=== PATIENT | female | born 1985 | race African-American/Black ===

== ENCOUNTER 2016-10-24 23:18 | Emergency (ER) | payer MEDICAID ==
[2016-10-24 23:37] VITALS: BP 118/83
[2016-10-24] MEDS ORDERED: HYDROXYZINE PAMOATE 25 MG CAPSULE PO ONE (23:43)
--- NOTE | 2016-10-24 23:45 | ER Document Report ---
ED Medical Screen (RME) - General Chief Complaint: Anxiety Stated Complaint: ANXIETY,HEADACHE Notes: 31-year-old female, chief complaint of anxiety and feeling like she cannot calm down tonight, states earlier she felt short of breath and like her heart was racing, denies any symptoms right now other than feeling very anxious. She states she has stressors at work at home, she denies SI or HI, denies ever attempting. She states she had Xanax at home for this but has not been taking them for some time. She denies any other medications. LMP 1 week ago. TRAVEL OUTSIDE OF THE [place] IN LAST 30 DAYS: No - Related Data Allergies/Adverse Reactions: latex [Latex] Allergy (Verified 07/09/14 14:55) Past Medical History - Social History Chew tobacco use (# tins/day): No Frequency of alcohol use: Occasional Drug Abuse: None Pulmonary Medical History: Reports: Hx Bronchitis, Hx Pneumonia Neurological Medical History: Reports: Hx Migraine Renal/ Medical History: Reports: Hx Ovarian Cysts. Denies: Hx Peritoneal Dialysis Psychiatric Medical History: Reports: Hx Anxiety, Hx Bipolar Disorder, Hx Depression Past Surgical History: Reports: Hx Section - x3 - Immunizations Hx Diphtheria, Pertussis, Tetanus Vaccination: Yes - 2013 Physical Exam - Vital signs Vitals: Temp Pulse Resp BP Pulse Ox 97.9 F 79 18 118/83 100 10/24/16 23:35 10/24/16 23:35 10/24/16 23:35 10/24/16 23:35 10/24/16 23:35 - Respiratory Respiratory status: No respiratory distress Breath sounds: Normal. No: Wheezing - Cardiovascular Rhythm: Regular. No: Tachycardia Heart sounds: Normal auscultation, S1 appreciated, S2 appreciated - Psychological Associated symptoms: Other - patient rocking slightly and talking quickly Course - Vital Signs Vital signs: Temp Pulse Resp BP Pulse Ox 97.9 F 79 18 118/83 100 10/24/16 23:35 10/24/16 23:35 10/24/16 23:35 10/24/16 23:35 10/24/16 23:35 Doctor's Discharge - Discharge Instructions: Anxiety ([facility])
== END 2016-10-25 02:20 | disposition left against medical advice (07) ==
LOC: ER 23:18
DX: F41.9 Anxiety disorder, unspecified (principal); R51 Headache; Z91.040 Latex allergy status; Z53.20 Procedure and treatment not carried out because of patient's decision for unspecified reasons
CPT/HCPCS: 99281; J3490

== ENCOUNTER 2017-07-16 12:16 | Emergency (ER) | payer MEDICAID ==
--- NOTE | 2017-07-16 12:46 | ER Document Report ---
ED Medical Screen (RME) - General Chief Complaint: Vag Bleeding, +preg <12wks Stated Complaint: VAGINAL BLEEDING Time Seen by Provider: 07/16/17 12:45 Notes: Patient states [facility] and her was confirmed. She states she has been having spotting for several days and abdominal cramping which is getting worse. She states she has not had an ultrasound yet with this . TRAVEL OUTSIDE OF THE [place] IN LAST 30 DAYS: Yes COUNTRY TRAVELED TO/FROM: [employer] - Related Data Allergies/Adverse Reactions: latex [Latex] Allergy (Verified 07/16/17 12:19) Past Medical History - Social History Chew tobacco use (# tins/day): No Frequency of alcohol use: None Drug Abuse: None Pulmonary Medical History: Reports: Hx Bronchitis, Hx Pneumonia Neurological Medical History: Reports: Hx Migraine Renal/ Medical History: Reports: Hx Ovarian Cysts. Denies: Hx Peritoneal Dialysis Psychiatric Medical History: Reports: Hx Anxiety, Hx Bipolar Disorder, Hx Depression Past Surgical History: Reports: Hx Section - x3 - Immunizations Hx Diphtheria, Pertussis, Tetanus Vaccination: Yes - 2013 Physical Exam - Vital signs Vitals: Temp Pulse Resp BP Pulse Ox 98.1 F 80 16 114/67 100 07/16/17 12:19 07/16/17 12:19 07/16/17 12:19 07/16/17 12:19 07/16/17 12:19 Course - Vital Signs Vital signs: Temp Pulse Resp BP Pulse Ox 98.1 F 80 16 114/67 100 07/16/17 12:19 07/16/17 12:19 07/16/17 12:19 07/16/17 12:19 07/16/17 12:19
[2017-07-16 13:13] LABS: ABSOLUTE BASOPHILS # (AUTO) 0.1 10^3/uL (0.0-0.2); ABSOLUTE LYMPHOCYTES (AUTO) 2.3 10^3/uL (0.5-4.7); ABSOLUTE MONOCYTES (AUTO) 0.6 10^3/uL (0.1-1.4); ABSOLUTE NEUT (AUTO) 5.4 10^3/uL (1.7-8.2); BASOPHILS % (AUTO) 0.8 % (0-2); EOSINOPHILS % (AUTO) 0.3 % (0-6); HEMATOCRIT 35.6 % (36.0-47.0); HEMOGLOBIN 12.1 g/dL (12.0-15.5); HGB HCT DIFFERENCE 0.7; LYMPHOCYTES % (AUTO) 27.7 % (13-45); MEAN CORPUSCULAR HEMOGLOBIN 30.2 pg (27.0-33.4); MEAN CORPUSCULAR VOLUME 89 fl (80-97); MONOCYTES % (AUTO) 7.2 % (3-13); RED BLOOD COUNT 4.02 10^6/uL (3.72-5.28); RED CELL DISTRIBUTION WIDTH 18.5 % (11.5-14.0); WHITE BLOOD COUNT 8.4 10^3/uL (4.0-10.5)
[2017-07-16 13:17] LABS: APPEARANCE,URINE CLEAR; BILIRUBIN,URINE NEGATIVE (NEGATIVE); GLUCOSE, URINE NEGATIVE (NEGATIVE); KETONES,URINE NEGATIVE (NEGATIVE); LEUKOCYTE ESTERASE,URINE NEGATIVE (NEGATIVE); NITRITE,URINE NEGATIVE (NEGATIVE); PROTEIN,URINE NEGATIVE (NEGATIVE); URINE SPECIFIC GRAVITY 1.012; UROBILINOGEN,URINE NEGATIVE mg/dL (<2.0)
[2017-07-16 13:39] LABS: ALANINE AMINOTRANSFERASE 27 U/L (9-52); ALBUMIN 4.4 g/dL (3.5-5.0); ALKALINE PHOSPHATASE 60 U/L (38-126); ANION GAP 12 (5-19); ASPARTATE AMINO TRANSFERASE 17 U/L (14-36); BILIRUBIN,DIRECT 0.3 mg/dL (0.0-0.4); BILIRUBIN,TOTAL 0.7 mg/dL (0.2-1.3); BLOOD UREA NITROGEN 8 mg/dL (7-20); CALCIUM 9.5 mg/dL (8.4-10.2); CARBON DIOXIDE 25 mmol/L (22-30); CHLORIDE 104 mmol/L (98-107); CREATININE RESULT 0.61 mg/dL (0.52-1.25); GLUCOSE 66 mg/dL (75-110); POTASSIUM 4.3 mmol/L (3.6-5.0); SODIUM 140.7 mmol/L (137-145); TOTAL PROTEIN 7.1 g/dL (6.3-8.2)
--- NOTE | 2017-07-16 14:11 | ER Document Report ---
ED GI/ - General Chief Complaint: Vag Bleeding, +preg <12wks Stated Complaint: VAGINAL BLEEDING Time Seen by Provider: 07/16/17 12:45 Notes: The patient is a 31-year-old female, , 7 weeks by LMP, presents with lower abdominal cramping and a small amount of vaginal bleeding for the past day. She denies dysuria, nausea, vomiting, fevers, diarrhea, constipation or vaginal discharge. TRAVEL OUTSIDE OF THE [place] IN LAST 30 DAYS: Yes COUNTRY TRAVELED TO/FROM: [employer] - Related Data Allergies/Adverse Reactions: latex [Latex] Allergy (Verified 07/16/17 12:19) Past Medical History - General Information source: Patient - Social History Smoking Status: Never Smoker Chew tobacco use (# tins/day): No Frequency of alcohol use: None Drug Abuse: None Family History: Reviewed & Not Pertinent Patient has suicidal ideation: No Patient has homicidal ideation: No Pulmonary Medical History: Reports: Hx Bronchitis, Hx Pneumonia Neurological Medical History: Reports: Hx Migraine Renal/ Medical History: Reports: Hx Ovarian Cysts. Denies: Hx Peritoneal Dialysis Psychiatric Medical History: Reports: Hx Anxiety, Hx Bipolar Disorder, Hx Depression Past Surgical History: Reports: Hx Section - x3 - Immunizations Hx Diphtheria, Pertussis, Tetanus Vaccination: Yes - 2013 Hx Pneumococcal Vaccination: 09/01/12 Review of Systems - Review of Systems Notes: REVIEW OF SYSTEMS: CONSTITUTIONAL: -fevers, -chills EENT: -eye pain, -difficulty swallowing, -nasal congestion CARDIOVASCULAR:-chest pain, -syncope. RESPIRATORY: -cough, -SOB GASTROINTESTINAL: -abdominal pain, -nausea, -vomiting, -diarrhea GENITOURINARY: -dysuria, -hematuria, +vaginal bleeding MUSCULOSKELETAL: -back pain, -neck pain SKIN: -rash or skin lesions. HEMATOLOGIC: -easy bruising or bleeding. LYMPHATIC: -swollen, enlarged glands. NEUROLOGICAL: -altered mental status or loss of consciousness, -headache, - neurologic symptoms PSYCHIATRIC: -anxiety, -depression. ALL OTHER SYSTEMS REVIEWED AND NEGATIVE. Physical Exam - Vital signs Vitals: Temp Pulse Resp BP Pulse Ox 98.1 F 80 16 114/67 100 07/16/17 12:19 07/16/17 12:19 07/16/17 12:19 07/16/17 12:19 07/16/17 12:19 - Notes Notes: PHYSICAL EXAMINATION: GENERAL: Well-appearing, well-nourished and in no acute distress. HEAD: Atraumatic, normocephalic. EYES: Pupils equal round and reactive to light, extraocular movements intact, sclera anicteric, conjunctiva are normal. ENT: nares patent, oropharynx clear without exudates. Moist mucous membranes. NECK: Normal range of motion, supple without lymphadenopathy LUNGS: Breath sounds clear to auscultation bilaterally and equal. No wheezes rales or rhonchi. HEART: Regular rate and rhythm without murmurs ABDOMEN: Soft, nontender, normoactive bowel sounds. No guarding, no rebound. No masses appreciated. EXTREMITIES: Normal range of motion, no pitting or edema. No cyanosis. NEUROLOGICAL: Cranial nerves grossly intact. Normal speech, normal gait. Normal sensory and motor exams. PSYCH: Normal mood, normal affect. SKIN: Warm, Dry, normal turgor, no rashes or lesions noted. Course - Re-evaluation Re-evalutation: Patient has a single living intrauterine with EGA 7 weeks 5 days. Her cervix is closed on ultrasound. Looking through old blood bank records, her blood type is O+ and she does not require RhoGam. Patient has an appointment with the health department. Instructed about pelvic rest and return precautions and she understands. - Vital Signs Vital signs: Temp Pulse Resp BP Pulse Ox 98.1 F 80 16 114/67 100 07/16/17 12:19 07/16/17 12:19 07/16/17 12:19 07/16/17 12:19 07/16/17 12:19 - Laboratory Result Diagrams: 07/16/17 12:50 07/16/17 12:50 Laboratory results interpreted by me: 07/16/17 07/16/17 12:50 12:50 Hct 35.6 L RDW 18.5 H Glucose 66 L Beta HCG, Quant 22623.00 H - Diagnostic Test Radiology reviewed: Image reviewed, Reports reviewed Radiology results interpreted by me: OB: Living IUP. EGA 7 weeks 5 days Discharge - Discharge Clinical Impression: Vaginal bleeding in Condition: Good Disposition: HOME, SELF-CARE Additional Instructions: : You are . care is best started as early in as possible. If you're unsure about continuing this , you should discuss this with your physician or with milk receiver tank [facility] at [facility]. You should take only medications approved by your physician. Acetaminophen can safely be taken for minor pains. As a rule, medication for chronic conditions such as asthma or seizures can safely be continued. You should discuss with the physician every medicine you take. Any regular exercise program can be continued. Talk to your physician, however, before engaging in competitive or demanding sports. Alcohol, smoking, and "street drugs" are dangerous to your baby. Cocaine is especially dangerous. Don't use any illicit drugs! BLEEDING DURING EARLY : You have been evaluated for passing blood while . While we take this symptom very seriously, most women with your degree of bleeding will go on to have a perfectly normal baby. At this time, there is no indication that a miscarriage will occur. (A miscarriage occurs when the fetus is abnormal. There is no medicine or treatment to prevent it.) A more serious cause of bleeding is tubal (or ectopic) . An ultrasound usually can show whether the is in the uterus or in the tube. Sometimes in early , no fetus is seen. In this case, careful follow-up, including repeat blood tests and repeat ultrasound, is necessary. Do not douche or have sex for at least a week, or until OK'd by the doctor. Don't use tampons. Call the doctor or return for re-examination if there is an increase in bleeding or cramping, extreme weakness, fainting, new abdominal pain, fever, or passage of tissue. THREATENED MISCARRIAGE: You have been evaluated for a possible miscarriage. At this time, there is no indication that a miscarriage will occur. Most women with your symptoms will go on to have a perfectly normal baby. However, careful observation will be necessary. A miscarriage occurs when the fetus is abnormal. There is no medicine or treatment for it. You should rest in bed until the symptoms have resolved. Do not douche or have sex for at least a week, or until OK'd by the doctor. Call the doctor or return for re-examination if there is an increase in bleeding or cramping, or passage of tissue. FOLLOW-UP CARE: If you have been referred to a physician for follow-up care, call the physician s office for an appointment as you were instructed or within the next two days. If you experience worsening or a significant change in your symptoms (very heavy bleeding with large clots of blood, passage of tissue, more severe abdominal / pelvic pain or cramping, feeling faint or severe weakness, fever, etc.), notify the physician immediately or return to the Emergency Department at any time for re-evaluation. OBSTETRIC-GYNECOLOGIC (OB-SANITARY [place] MACHINE TENDER) PHYSICIANS IN [place]: [facility] [address], [place] [phone] [facility] [address], [place] [phone] For active duty and dependents diagnosed with a threatened or miscarriage, you should follow up in the following manner: Standard patients who have a local civilian provider should follow up with that provider. Patients of the Family Practice Clinic should call your Team Nurse at 8: 00 am the following morning for further instructions. If you are neither a Standard patient nor a patient of the Family Practice Clinic, you should follow up at the [facility] ([facility]) . Patients already enrolled in the [facility] OB Clinic, Prime patients not assigned to the Family Practice Clinic, and Active Duty patients not assigned to Family Practice Clinic should report to the [facility] Lab at 8:00 am the next morning that the [facility] is open and then you will be seen in the OB Clinic at 11:00 am. Referrals: JYOTHI PASCUAL MD [ACTIVE STAFF] - Follow up as needed
--- NOTE | 2017-07-16 18:28 | RADIOLOGY REPORT (SQ) ---
EXAM DESCRIPTION: U/S OB TRANSVAGINAL W/O DOP COMPLETED DATE/TIME: 07/16/2017 6:14 pm REASON FOR STUDY: PAIN/ VAG BLEEDING COMPARISON: None. TECHNIQUE: Transvaginal static and realtime grayscale images acquired of the pelvis. Additional nancy cted spectral and color Doppler images recorded. All images stored on PACs. bHCG: Not available LIMITATIONS: None. FINDINGS: FETUS: Living intrauterine . EGA: 7 weeks 5 days TATI: 02/27/2018 FHR: 149 beats per minute. SUBCHORIONIC BLEED: Yes SIZE OF BLEED: Small measuring 1.6 cm UTERUS: No masses. No anomalies. CERVICAL LENGTH: 2.6 cm Closed. RIGHT ADNEXA: Normal ovary with normal vascular flow. No adnexal free fluid. No adnexal masses. LEFT ADNEXA: Left ovary was not visualized. No adnexal free fluid. No adnexal masses. FREE FLUID: None. OTHER: No other significant finding. IMPRESSION: LIVING INTRAUTERINE . EGA 7 weeks 5 days Trimester of : First - 0 to 13 weeks. TECHNICAL DOCUMENTATION: JOB ID: [id number] [employer]- All Rights Reserved
[2017-07-16 18:45] VITALS: BP 122/81
== END 2017-07-16 18:45 | disposition home or self-care (01) ==
LOC: ER 12:16
DX: O46.91 Antepartum hemorrhage, unspecified, first trimester (principal); Z3A.01 Less than 8 weeks gestation of pregnancy
CPT/HCPCS: 36415; 76817; 80053; 81001; 84702; 85025; 99284

== ENCOUNTER 2017-11-13 11:25 | Emergency (ER) | payer MEDICAID ==
[2017-11-13 11:35] VITALS: BP 124/59
--- NOTE | 2017-11-13 11:46 | ER Document Report ---
ED General - General Chief Complaint: Cough Stated Complaint: CHEST PAIN, COUGH,RECTAL BLEEDING Time Seen by Provider: 11/13/17 11:35 Mode of Arrival: Ambulatory Information source: Patient Notes: 32 yr old female presents with complaints of right lower chest pain , cough. Pt notes she has been ocughing for 5 days, , dry initially now productive. pt had fever on friday 101.8. 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 IN LAST 30 DAYS: No COUNTRY TRAVELED TO/FROM: [employer] - [facility] Onset: Last week Onset/Duration: Persistent Quality of pain: Sharp Severity: Mild Pain Level: 1 Associated symptoms: Productive cough - green, Fever, Shortness of breath Exacerbated by: Coughing Relieved by: Denies Similar symptoms previously: No Recently seen / treated by doctor: No - Related Data Allergies/Adverse Reactions: latex [Latex] Allergy (Verified 11/13/17 11:33) Past Medical History - Social History Smoking Status: Current Some Day Smoker Cigarette use (# per day): No Chew tobacco use (# tins/day): No Smoking Education Provided: No Frequency of alcohol use: None Drug Abuse: None Family History: Reviewed & Not Pertinent Patient has suicidal ideation: No Patient has homicidal ideation: No Pulmonary Medical History: Reports: Hx Bronchitis, Hx Pneumonia Neurological Medical History: Reports: Hx Migraine Renal/ Medical History: Reports: Hx Ovarian Cysts. Denies: Hx Peritoneal Dialysis Psychiatric Medical History: Reports: Hx Anxiety, Hx Bipolar Disorder, Hx Depression Past Surgical History: Reports: Hx Section - x3 - Immunizations Hx Diphtheria, Pertussis, Tetanus Vaccination: Yes - 2013 Hx Pneumococcal Vaccination: 09/01/12 Review of Systems - Review of Systems Notes: REVIEW OF SYSTEMS: CONSTITUTIONAL : Admits fever EENT: Denies eye, ear, throat, or mouth pain or symptoms. Denies nasal or sinus congestion or discharge. Denies throat, tongue, or mouth swelling or difficulty swallowing. CARDIOVASCULAR: Denies chest pain. Denies palpitations or racing or irregular heart beat. Denies ankle edema. RESPIRATORY: Admits to productive cough GASTROINTESTINAL: Denies abdominal pain or distention. Denies nausea, vomiting , or diarrhea. Denies blood in vomitus, stools, or per rectum. Denies black, tarry stools. Denies constipation. GENITOURINARY: Denies difficulty urinating, painful urination, burning, frequency, blood in urine, or discharge. FEMALE GENITOURINARY: Denies vaginal bleeding, heavy or abnormal periods, irregular periods. Denies vaginal discharge or odor. MUSCULOSKELETAL: Denies back or neck pain or stiffness. Denies joint pain or swelling. SKIN: Denies rash, lesions or sores. HEMATOLOGIC : Denies easy bruising or bleeding. LYMPHATIC: Denies swollen, enlarged glands. NEUROLOGICAL: Denies confusion or altered mental status. Denies passing out or loss of consciousness. Denies dizziness or lightheadedness. Denies headache. Denies weakness or paralysis or loss of use of either side. Denies problems with gait or speech. Denies sensory loss, numbness, or tingling. Denies seizures. PSYCHIATRIC: Denies anxiety or stress. Denies depression, suicidal ideation, or homicidal ideation. ALL OTHER SYSTEMS REVIEWED AND NEGATIVE. PHYSICAL EXAMINATION: GENERAL: Well-appearing, well-nourished and in no acute distress. HEAD: Atraumatic, normocephalic. EYES: Pupils equal round and reactive to light, extraocular movements intact, conjunctiva are normal. ENT: Nares patent, oropharynx clear without exudates. Moist mucous membranes. NECK: Normal range of motion, supple without lymphadenopathy LUNGS: Breath sounds clear to auscultation bilaterally and equal. No wheezes rales or rhonchi. HEART: Regular rate and rhythm without murmurs ABDOMEN: Soft, nontender, nondistended abdomen. No guarding, no rebound. No masses appreciated. Female : deferred Musculoskeletal: Normal range of motion, no pitting or edema. No cyanosis. NEUROLOGICAL: Cranial nerves grossly intact. Normal speech, normal gait. Normal sensory, motor exams PSYCH: Normal mood, normal affect. SKIN: Warm, Dry, normal turgor, no rashes or lesions noted. Dictation was performed using [employer] voice recognition software Physical Exam - Vital signs Vitals: Temp Pulse Resp BP Pulse Ox 98.7 F 65 18 124/59 L 100 11/13/17 11:32 11/13/17 11:32 11/13/17 11:32 11/13/17 11:32 11/13/17 11:32 Course - Re-evaluation Re-evalutation: 11/13/17 11:45 Patient overall looks quite well, vital signs are stable, she did have recent travel therefore d-dimer has been ordered 11/13/17 13:18 D-dimer was negative, patient overall looks well, x-ray noted no significant abnormality, however given the productive cough I will start her on antibiotics for presumed pneumonia After performing a Medical Screening Examination, I estimate there is LOW risk for ACUTE CORONARY SYNDROME, PULMONARY EMBOLI, RESPIRATORY FAILURE, SEPSIS OR MENINGITIS, thus I consider the discharge disposition reasonable. I have reevaluated this patient multiple times and no significant life threatening changes are noted. The patient and I have discussed the diagnosis and risks, and we agree with discharging home with close follow-up. We also discussed returning to the Emergency Department immediately if new or worsening symptoms occur. We have discussed the symptoms which are most concerning (e.g., changing or worsening pain, trouble swallowing or breathing, neck stiffness, fever) that necessitate immediate return. - Vital Signs Vital signs: Temp Pulse Resp BP Pulse Ox 98.7 F 65 18 124/59 L 100 11/13/17 11:32 11/13/17 11:32 11/13/17 11:32 11/13/17 11:32 11/13/17 11:32 - Laboratory Result Diagrams: 11/13/17 12:05 11/13/17 12:05 Laboratory results interpreted by me: 11/13/17 11/13/17 12:05 12:05 Hgb 11.5 L Hct 34.9 L RDW 17.1 H Glucose 72 L - Diagnostic Test Radiology reviewed: Image reviewed - no acute abnormality , report given to patient, Reports reviewed Discharge - Discharge Clinical Impression: URI with cough and congestion Condition: Stable Disposition: HOME, SELF-CARE Instructions: Upper Respiratory Illness ([facility]) Prescriptions: Azithromycin 250 mg PO ASDIR PRN #6 tablet PRN Reason: Referrals: LEE CLAYTON I, DO [Primary Care Provider] - Follow up tomorrow
--- NOTE | 2017-11-13 12:07 | RADIOLOGY REPORT (SQ) ---
EXAM DESCRIPTION: CHEST PA/LAT COMPLETED DATE/TIME: 11/13/2017 11:58 am REASON FOR STUDY: cough fever productive COMPARISON: 10/27/2012. EXAM PARAMETERS: NUMBER OF VIEWS: two views TECHNIQUE: Digital Frontal and Lateral radiographic views of the chest acquired. RADIATION DOSE: NA LIMITATIONS: none FINDINGS: LUNGS AND PLEURA: No opacities, masses or pneumothorax. No pleural effusion. MEDIASTINUM AND HILAR STRUCTURES: No masses or contour abnormalities. HEART AND VASCULAR STRUCTURES: Heart normal size. No evidence for failure. BONES: No acute findings. HARDWARE: None in the chest. OTHER: No other significant finding. IMPRESSION: NO SIGNIFICANT RADIOGRAPHIC FINDING IN THE CHEST. TECHNICAL DOCUMENTATION: JOB ID: [id number] [employer]- All Rights Reserved Reading location - IP/workstation name: [email or web address]
[2017-11-13 12:32] LABS: ABSOLUTE BASOPHILS # (AUTO) 0.1 10^3/uL (0.0-0.2); ABSOLUTE EOSINOPHILS # (AUTO) 0.1 10^3/uL (0.0-0.6); ABSOLUTE LYMPHOCYTES (AUTO) 2.3 10^3/uL (0.5-4.7); ABSOLUTE MONOCYTES (AUTO) 0.6 10^3/uL (0.1-1.4); ABSOLUTE NEUT (AUTO) 3.8 10^3/uL (1.7-8.2); BASOPHILS % (AUTO) 1.2 % (0-2); EOSINOPHILS % (AUTO) 0.8 % (0-6); HEMATOCRIT 34.9 % (36.0-47.0); HEMOGLOBIN 11.5 g/dL (12.0-15.5); LYMPHOCYTES % (AUTO) 33.6 % (13-45); MEAN CORPUSCULAR HEMOGLOBIN 29.5 pg (27.0-33.4); MEAN CORPUSCULAR HGB CONC 33.1 g/dL (32.0-36.0); MEAN CORPUSCULAR VOLUME 89 fl (80-97); MONOCYTES % (AUTO) 8.4 % (3-13); PLATELET COUNT 355 10^3/uL (150-450); RED BLOOD COUNT 3.91 10^6/uL (3.72-5.28); RED CELL DISTRIBUTION WIDTH 17.1 % (11.5-14.0); TOTAL CELLS COUNTED % (AUTO) 100 %; WHITE BLOOD COUNT 6.7 10^3/uL (4.0-10.5)
[2017-11-13 12:53] LABS: ALANINE AMINOTRANSFERASE 40 U/L (9-52); ALBUMIN 4.3 g/dL (3.5-5.0); ALKALINE PHOSPHATASE 76 U/L (38-126); ANION GAP 10 (5-19); ASPARTATE AMINO TRANSFERASE 24 U/L (14-36); BILIRUBIN,DIRECT 0.1 mg/dL (0.0-0.4); BILIRUBIN,TOTAL 0.4 mg/dL (0.2-1.3); BLOOD UREA NITROGEN 7 mg/dL (7-20); CALCIUM 9.5 mg/dL (8.4-10.2); CARBON DIOXIDE 24 mmol/L (22-30); CHLORIDE 107 mmol/L (98-107); GLUCOSE 72 mg/dL (75-110); POTASSIUM 4.3 mmol/L (3.6-5.0); SODIUM 140.8 mmol/L (137-145); TOTAL PROTEIN 6.8 g/dL (6.3-8.2)
== END 2017-11-13 13:28 | disposition home or self-care (01) ==
LOC: ER 11:25
DX: J06.9 Acute upper respiratory infection, unspecified (principal); R05 Cough; R07.9 Chest pain, unspecified; R50.9 Fever, unspecified; R06.02 Shortness of breath; F17.200 Nicotine dependence, unspecified, uncomplicated; Z91.040 Latex allergy status; Z87.01 Personal history of pneumonia (recurrent)
CPT/HCPCS: 36415; 71046; 80053; 85025; 85379; 99284

== ENCOUNTER 2018-04-22 02:54 | Emergency (ER) | payer SELFPAY ==
--- NOTE | 2018-04-22 04:36 | ER Document Report ---
ED General - General Chief Complaint: Vag Bleeding, +preg <12wks Stated Complaint: VAGINAL BLEEDING Time Seen by Provider: 04/22/18 04:34 Mode of Arrival: Ambulatory Information source: Patient Notes: Patient is a 32-year-old female who presents with chief complaint of vaginal bleeding that started yesterday. Patient reports she is approximately 6 weeks . Patient reports this is her fifth , she has 3 living children and she had one missed carriage several months ago. Patient reports the bleeding is mild at this time, reports passage of a few quarter size clots. Patient denies any nausea, vomiting or fever. TRAVEL OUTSIDE OF THE [place] IN LAST 30 DAYS: No COUNTRY TRAVELED TO/FROM: [place] - Related Data Allergies/Adverse Reactions: latex [Latex] Allergy (Verified 04/22/18 06:12) Past Medical History - General Information source: Patient - Social History Smoking Status: Never Smoker Frequency of alcohol use: None Drug Abuse: None Family History: Reviewed & Not Pertinent Pulmonary Medical History: Reports: Hx Bronchitis, Hx Pneumonia Neurological Medical History: Reports: Hx Migraine Renal/ Medical History: Reports: Hx Ovarian Cysts. Denies: Hx Peritoneal Dialysis Psychiatric Medical History: Reports: Hx Anxiety, Hx Bipolar Disorder, Hx Depression Past Surgical History: Reports: Hx Section - x3 - Immunizations Hx Diphtheria, Pertussis, Tetanus Vaccination: Yes - 2013 Hx Pneumococcal Vaccination: 09/01/12 Review of Systems - Review of Systems Constitutional: No symptoms reported EENT: No symptoms reported Cardiovascular: No symptoms reported Respiratory: No symptoms reported Gastrointestinal: See HPI Genitourinary: No symptoms reported Female Genitourinary: See HPI Musculoskeletal: No symptoms reported Skin: No symptoms reported Hematologic/Lymphatic: No symptoms reported Neurological/Psychological: No symptoms reported Physical Exam - Vital signs Vitals: Temp Pulse Resp BP Pulse Ox 98.5 F 69 16 114/67 99 04/22/18 03:05 04/22/18 03:05 04/22/18 03:05 04/22/18 03:05 04/22/18 03:05 - Notes Notes: PHYSICAL EXAMINATION: GENERAL: Well-appearing, well-nourished and in no acute distress. HEAD: Atraumatic, normocephalic. EYES: Pupils equal round and reactive to light, extraocular movements intact, conjunctiva are normal. ENT: Nares patent, oropharynx clear without exudates. Moist mucous membranes. NECK: Normal range of motion, supple without lymphadenopathy LUNGS: Breath sounds clear to auscultation bilaterally and equal. No wheezes rales or rhonchi. HEART: Regular rate and rhythm without murmurs ABDOMEN: Soft, nontender, nondistended abdomen. No guarding, no rebound. No masses appreciated. Female : deferred Musculoskeletal: Normal range of motion, no pitting or edema. No cyanosis. NEUROLOGICAL: Cranial nerves grossly intact. Normal speech, normal gait. Normal sensory, motor exams PSYCH: Normal mood, normal affect. SKIN: Warm, Dry, normal turgor, no rashes or lesions noted. Course - Re-evaluation Re-evalutation: Patient is a presenting with chief complaint of vaginal bleeding. Patient reports she is approximately 6 weeks . According to [facility] records patient is Rh+ so program workup will not be ordered. Patient currently reporting low abdominal cramping. Patient is crying during examination. Will order pain and nausea medicines and proceed with transvaginal ultrasound. CBC and CMP is unremarkable. HCG is positive, quantitative hCG is 3883. Urinalysis is unremarkable for any signs of infection. Transvaginal ultrasound reveals an intrauterine gestational sac with no defined pole, approximate gestational age would be 5 weeks 5 days. Patient is not having active vaginal bleeding while in the department. Patient will be discharged home with plan to return for repeat quantitative hCG in 24-48 hours. Patient verbalizes understanding of plan of care and is agreeable to same. - Vital Signs Vital signs: Temp Pulse Resp BP Pulse Ox 97.9 F 59 L 16 102/60 100 04/22/18 06:53 04/22/18 06:53 04/22/18 06:53 04/22/18 06:53 04/22/18 06:53 - Laboratory Result Diagrams: 04/22/18 05:00 04/22/18 05:00 Laboratory results interpreted by me: 04/22/18 04/22/18 04/22/18 05:00 05:00 05:15 Hgb 11.6 L Hct 34.9 L RDW 18.2 H Beta HCG, Quant 3883.50 H Urine Urobilinogen 4.0 H Discharge - Discharge Clinical Impression: Vaginal bleeding, Threatened Condition: Stable Disposition: HOME, SELF-CARE Additional Instructions: Threatened Miscarriage You have been evaluated for a possible miscarriage. At this time, there is no indication that a miscarriage will occur. Most women with your symptoms will go on to have a perfectly normal baby. However, careful observation will be necessary. A miscarriage occurs when the fetus is abnormal. There is no medicine or treatment for it. You should rest in bed until the symptoms have resolved. Do not douche or have sex for at least a week, or until OK'd by the doctor. Call the doctor or return for re-examination if there is an increase in bleeding or cramping, or passage of tissue. The ultrasound report shows that you are approximately 5 weeks . It will be important for you to return for repeat lab testing in 24-48 hours. I will provide you with an outpatient lab slip for this. Please return to the emergency department if you develop worsening vaginal bleeding, or soaking through more than 1 pad per hour have uncontrollable pain or any other symptom that is concerning to you. Please follow-up with your HEARING AIDE TECHNICIAN in the next 2-3 days for a follow-up. Forms: Follow-Up Laboratory Testing, Return to Work Referrals: LEE CLAYTON I, DO [Primary Care Provider] - Follow up as needed
[2018-04-22 05:10] LABS: ABSOLUTE BASOPHILS # (AUTO) 0.1 10^3/uL (0.0-0.2); ABSOLUTE LYMPHOCYTES (AUTO) 1.6 10^3/uL (0.5-4.7); ABSOLUTE MONOCYTES (AUTO) 0.6 10^3/uL (0.1-1.4); ABSOLUTE NEUT (AUTO) 4.5 10^3/uL (1.7-8.2); BASOPHILS % (AUTO) 0.9 % (0-2); EOSINOPHILS % (AUTO) 0.6 % (0-6); HEMATOCRIT 34.9 % (36.0-47.0); HEMOGLOBIN 11.6 g/dL (12.0-15.5); LYMPHOCYTES % (AUTO) 23.9 % (13-45); MEAN CORPUSCULAR HEMOGLOBIN 29.4 pg (27.0-33.4); MEAN CORPUSCULAR HGB CONC 33.2 g/dL (32.0-36.0); MEAN CORPUSCULAR VOLUME 88 fl (80-97); MONOCYTES % (AUTO) 8.3 % (3-13); PLATELET COUNT 306 10^3/uL (150-450); RED BLOOD COUNT 3.94 10^6/uL (3.72-5.28); RED CELL DISTRIBUTION WIDTH 18.2 % (11.5-14.0); SEGMENTED NEUTROPHILS % (AUTO) 66.3 % (42-78); TOTAL CELLS COUNTED % (AUTO) 100 %; WHITE BLOOD COUNT 6.8 10^3/uL (4.0-10.5)
[2018-04-22] MEDS ORDERED: ONDANSETRON HCL INJ/PF 4 MG/2 ML SDV IV ONE (05:15)
[2018-04-22] MEDS ORDERED: MORPHINE SULFATE 10 MG/ML INJ IV ONE (05:16)
[2018-04-22 05:25] LABS: ALANINE AMINOTRANSFERASE 33 U/L (9-52); ALBUMIN 3.8 g/dL (3.5-5.0); ALKALINE PHOSPHATASE 80 U/L (38-126); ANION GAP 11 (5-19); ASPARTATE AMINO TRANSFERASE 20 U/L (14-36); BILIRUBIN,DIRECT 0.2 mg/dL (0.0-0.4); BILIRUBIN,TOTAL 0.5 mg/dL (0.2-1.3); BLOOD UREA NITROGEN 9 mg/dL (7-20); CALCIUM 8.9 mg/dL (8.4-10.2); CARBON DIOXIDE 23 mmol/L (22-30); CHLORIDE 107 mmol/L (98-107); GLUCOSE 82 mg/dL (75-110); POTASSIUM 4.5 mmol/L (3.6-5.0); SODIUM 141.4 mmol/L (137-145); TOTAL PROTEIN 6.8 g/dL (6.3-8.2)
[2018-04-22 06:00] LABS: APPEARANCE,URINE CLEAR; BILIRUBIN,URINE NEGATIVE (NEGATIVE); COLOR,URINE YELLOW; GLUCOSE, URINE NEGATIVE (NEGATIVE); KETONES,URINE NEGATIVE (NEGATIVE); LEUKOCYTE ESTERASE,URINE NEGATIVE (NEGATIVE); NITRITE,URINE NEGATIVE (NEGATIVE); PROTEIN,URINE NEGATIVE (NEGATIVE); URINE SPECIFIC GRAVITY 1.024
--- NOTE | 2018-04-22 06:26 | RADIOLOGY REPORT (SQ) ---
CLINICAL DATA: 32-year-old female with vaginal bleeding and positive TECHNICAL DATA: Ultrasound imaging of the pelvis was performed endovaginally. COMPARISONS: None FINDINGS: The uterus is grossly normal in size, shape and echogenicity and measures 11.2 cm in length by 7.0 cm in AP dimension. There is a single, normal appearing intrauterine gestational sac which may contain a yolk sac. The average sac diameter measures 0.85 cm corresponding to a five week five day . No definite pole is identified at this time. The right ovary measures 4.5 x 5.0 x 2.6 cm. The right ovary contains a dominant simple appearing follicle measuring 2.6 x 1.8 cm in cross-sectional diameter. No follow-up imaging is recommended. Doppler imaging demonstrates normal pulsed and color Doppler flow. The left ovary measures 2.0 x 3.0 x 2.0 cm. The left ovary is grossly homogeneous in echogenicity. Doppler imaging demonstrates normal Doppler flow. There is a small amount of free fluid in the pelvis. No adnexal mass lesions are identified. IMPRESSION: 1. Intrauterine gestational sac corresponding to a gestational age of approximately five weeks five days. There may be a yolk sac present but there is no evidence of a pole at this time. 2. There is a small amount of free fluid in the pelvis. 3. Grossly normal sonographic evaluation of the ovaries.
[2018-04-22] MEDS ORDERED: HYDROCODONE/ACETAMINOPHEN 5-325 MG (6 TAB/ER DISP) PO PRN (06:36)
[2018-04-22 06:54] VITALS: BP 102/60
== END 2018-04-22 06:54 | disposition home or self-care (01) ==
LOC: ER 02:54
DX: O20.0 Threatened abortion (principal); Z3A.01 Less than 8 weeks gestation of pregnancy; Z91.040 Latex allergy status
CPT/HCPCS: 99284; 96374; 96375; 36415; 84702; 85025; 80053; 81001; 76817; 93976; J2270; J2405

== ENCOUNTER 2018-10-29 20:35 | Emergency (ER) | payer MEDICAID ==
[2018-10-29] MEDS ORDERED: NORMAL SALINE 1000 ML 1,000 ML IV ONE (22:47)
[2018-10-29] MEDS ORDERED: ACETAMINOPHEN 325 MG TABLET PO ONE (22:47)
[2018-10-29 22:51] LABS: ABSOLUTE BASOPHILS # (AUTO) 0.1 10^3/uL (0.0-0.2); ABSOLUTE MONOCYTES (AUTO) 0.6 10^3/uL (0.1-1.4); ABSOLUTE NEUT (AUTO) 5.2 10^3/uL (1.7-8.2); BASOPHILS % (AUTO) 0.9 % (0-2); EOSINOPHILS % (AUTO) 0.2 % (0-6); HEMATOCRIT 35.7 % (36.0-47.0); HEMOGLOBIN 12.2 g/dL (12.0-15.5); LYMPHOCYTES % (AUTO) 25.7 % (13-45); MEAN CORPUSCULAR HEMOGLOBIN 30.3 pg (27.0-33.4); MEAN CORPUSCULAR HGB CONC 34.2 g/dL (32.0-36.0); MEAN CORPUSCULAR VOLUME 89 fl (80-97); MONOCYTES % (AUTO) 7.6 % (3-13); PLATELET COUNT 328 10^3/uL (150-450); RED BLOOD COUNT 4.02 10^6/uL (3.72-5.28); RED CELL DISTRIBUTION WIDTH 16.1 % (11.5-14.0); SEGMENTED NEUTROPHILS % (AUTO) 65.6 % (42-78); TOTAL CELLS COUNTED % (AUTO) 100 %; WHITE BLOOD COUNT 7.9 10^3/uL (4.0-10.5)
[2018-10-29 22:54] LABS: APPEARANCE,URINE SLIGHTLY-CLOUDY; BILIRUBIN,URINE NEGATIVE (NEGATIVE); COLOR,URINE RED; GLUCOSE, URINE NEGATIVE (NEGATIVE); KETONES,URINE NEGATIVE (NEGATIVE); LEUKOCYTE ESTERASE,URINE TRACE (NEGATIVE); NITRITE,URINE NEGATIVE (NEGATIVE); PROTEIN,URINE 100 mg/dL (NEGATIVE); URINE SPECIFIC GRAVITY 1.004; UROBILINOGEN,URINE NEGATIVE mg/dL (<2.0)
[2018-10-29 23:04] LABS: ALANINE AMINOTRANSFERASE 29 U/L (9-52); ALBUMIN 4.8 g/dL (3.5-5.0); ALKALINE PHOSPHATASE 71 U/L (38-126); ANION GAP 10 (5-19); ASPARTATE AMINO TRANSFERASE 28 U/L (14-36); BILIRUBIN,DIRECT 0.2 mg/dL (0.0-0.4); BILIRUBIN,TOTAL 0.9 mg/dL (0.2-1.3); BLOOD UREA NITROGEN 8 mg/dL (7-20); CARBON DIOXIDE 24 mmol/L (22-30); CHLORIDE 107 mmol/L (98-107); GLUCOSE 97 mg/dL (75-110); LIPASE 58.4 U/L (23-300); POTASSIUM 4.2 mmol/L (3.6-5.0); SODIUM 141.2 mmol/L (137-145)
[2018-10-29] MEDS ORDERED: KETOROLAC TROMETHAMINE INJ/PF 30 MG/1 ML SDV IV ONE (23:50)
--- NOTE | 2018-10-30 00:02 | ER Document Report ---
ED General - General Chief Complaint: Vag Bleeding, +preg <12wks Stated Complaint: VAGINAL BLEEDING/CRAMPING Time Seen by Provider: 10/29/18 22:21 Primary Care Provider: LEE CLAYTON DO [Primary Care Provider] - Follow up as needed TRAVEL OUTSIDE OF THE [place] IN LAST 30 DAYS: No COUNTRY TRAVELED TO/FROM: [facility] Patient complains to provider of: Vaginal bleeding cramping positive test at home Notes: Patient states this morning took a home test was positive later that evening started having some vaginal bleeding but states she is gone through 1 pad. Patient states she is a with 2 miscarriages. Patient states this will be her 6 . Patient states having intense abdominal cramping almost like contractions. Patient denies any trauma to the area states slight nausea no vomiting. No diarrhea. Patient denies fevers chills. Patient otherwise resting comfortably upon my evaluation states abdominal surgical history is positive for C-sections. - Related Data Allergies/Adverse Reactions: latex [Latex] Allergy (Verified 10/29/18 20:36) Past Medical History - Social History Smoking Status: Never Smoker Frequency of alcohol use: None Drug Abuse: Marijuana Family History: Reviewed & Not Pertinent Patient has suicidal ideation: No Patient has homicidal ideation: No Pulmonary Medical History: Reports: Hx Bronchitis, Hx Pneumonia Neurological Medical History: Reports: Hx Migraine Renal/ Medical History: Reports: Hx Ovarian Cysts. Denies: Hx Peritoneal Dialysis Psychiatric Medical History: Reports: Hx Anxiety, Hx Bipolar Disorder, Hx Depression Past Surgical History: Reports: Hx Section - x3, Hx Genitourinary Surgery - D&C 07/2018 - Immunizations Hx Diphtheria, Pertussis, Tetanus Vaccination: Yes - 2013 Hx Pneumococcal Vaccination: 09/01/12 Review of Systems - Review of Systems Constitutional: No symptoms reported EENT: No symptoms reported Cardiovascular: No symptoms reported Respiratory: No symptoms reported Gastrointestinal: No symptoms reported Genitourinary: No symptoms reported Female Genitourinary: Vaginal bleeding Musculoskeletal: No symptoms reported Skin: No symptoms reported Hematologic/Lymphatic: No symptoms reported Neurological/Psychological: No symptoms reported -: Yes All other systems reviewed and negative Physical Exam - Vital signs Vitals: Temp Pulse Resp BP Pulse Ox 97.5 F 106 H 20 140/97 H 100 10/29/18 22:10 10/29/18 22:10 10/29/18 22:10 10/29/18 22:10 10/29/18 22:10 Interpretation: Normal - General General appearance: Appears well, Alert - HEENT Head: Normocephalic, Atraumatic Eyes: Normal Pupils: PERRL - Respiratory Respiratory status: No respiratory distress Chest status: Nontender Breath sounds: Normal Chest palpation: Normal - Cardiovascular Rhythm: Regular Heart sounds: Normal auscultation Murmur: No - Abdominal Inspection: Normal Distension: No distension Bowel sounds: Normal Tenderness: Nontender Organomegaly: No organomegaly - Back Back: Normal, Nontender - Extremities General upper extremity: Normal inspection, Nontender, Normal color, Normal ROM, Normal temperature General lower extremity: Normal inspection, Nontender, Normal color, Normal ROM, Normal temperature, Normal weight bearing. No: Rebecca's sign - Neurological Neuro grossly intact: Yes Cognition: Normal Orientation: AAOx4 Jann Coma Scale Eye Opening: Spontaneous Jann Coma Scale Verbal: Oriented Jann Coma Scale Motor: Obeys Commands [place] Coma Scale Total: 15 Speech: Normal Motor strength normal: LUE, RUE, LLE, RLE Sensory: Normal - Psychological Associated symptoms: Normal affect, Normal mood - Skin Skin Temperature: Warm Skin Moisture: Dry Skin Color: Normal Course - Re-evaluation Re-evalutation: 10/30/18 00:58 Patient's beta hCG returned negative. Signs the patient more likely she is having a menstrual cycle as that even with a positive test or this morning still expect slight elevation in her beta hCGs at this time as that has been less than 24 hours. Patient is understanding. Patient was given instructions to use Tylenol Motrin for pain control Bentyl for cramping Zofran for any nausea. Patient was discharged home follow-up with [facility]. - Vital Signs Vital signs: Temp Pulse Resp BP Pulse Ox 98.3 F 106 H 18 109/73 97 10/30/18 00:55 10/29/18 22:10 10/30/18 00:55 10/30/18 00:55 10/30/18 00:55 - Laboratory Result Diagrams: 10/29/18 22:35 10/29/18 22:35 Laboratory results interpreted by me: 10/29/18 10/29/18 22:35 22:35 Hct 35.7 L RDW 16.1 H Urine Protein 100 H Urine Blood LARGE H Ur Leukocyte Esterase TRACE H Discharge - Discharge Clinical Impression: Vaginal bleeding, Abdominal cramping Condition: Good Disposition: HOME, SELF-CARE Instructions: Abdominal Pain ([facility]), Vaginal Bleeding ([facility]) Additional Instructions: Your patency test night was negative do believe the positive test that she had at home was a false positive. More likely the bleeding that you are having right now is due to a menstrual cycle. I would recommend taking Tylenol and Motrin for your abdominal cramping you may also try Bentyl as prescribed return to the ER symptoms worsen follow-up with your primary care physician. Prescriptions: Dicyclomine HCl [Bentyl 20 mg Tablet] 20 mg PO QID #30 tablet Ondansetron [Zofran Odt 4 mg Tablet] 1 - 2 tab PO Q4H PRN #30 tab.rapdis PRN Reason: For Nausea/Vomiting Forms: Return to Work Referrals: LEE CLAYTON I, DO [Primary Care Provider] - Follow up as needed
--- NOTE | 2018-10-30 00:11 | RADIOLOGY REPORT (SQ) ---
EXAM DESCRIPTION: US TRANSVAGINAL COMPLETED DATE/TME: 10/29/2018 23:04 CLINICAL HISTORY: 33 years, Female, +PREG BLEEDINGS COMPARISON:None. TECHNIQUE: Grayscale and Doppler sonogram of the pelvis. Transvaginal technique was used for better evaluation of the pelvic viscera FINDINGS: The uterus measures 9.7 x 7.5 x 6.1 cm. A gestational sac is not visualized. Diffuse prominence of the myometrium. Enlarged periuterine veins. Small amount of echogenic fluid within the endometrial cavity. Right ovary: Measures 3.6 x 2.4 x 2.3 cm. Normal doppler flow. No mass lesion. Left ovary: Measures 2.2 x 1.5 x 1.7 cm. Normal doppler flow. No mass lesion. Free fluid: None. IMPRESSION: No intrauterine is identified. Differential possibilities include early gestation versus missed . Correlation with beta-hCG and follow-up ultrasound as needed.
[2018-10-30] MEDS ORDERED: DICYCLOMINE HCL 20 MG TABLET PO ONE (00:21)
[2018-10-30 00:55] VITALS: BP 109/73
[2018-10-30] MEDS ORDERED: ONDANSETRON 4 MG TAB.RAPDIS PO ONE (00:55)
== END 2018-10-30 01:03 | disposition home or self-care (01) ==
LOC: ER 20:35
DX: N93.8 Other specified abnormal uterine and vaginal bleeding (principal); R10.9 Unspecified abdominal pain; Z32.02 Encounter for pregnancy test, result negative
CPT/HCPCS: 99284; 96374; 86900; 86901; 36415; 86850; 84702; 83690; 85025; 80053; 81001; 76817; 93976; J3490 ×2; S0119; J1885; J7030

== ENCOUNTER 2019-04-11 21:45 | Emergency (ER) | payer MEDICAID ==
[2019-04-11 23:10] LABS: ABSOLUTE EOSINOPHILS # (AUTO) 0.1 10^3/uL (0.0-0.6); ABSOLUTE LYMPHOCYTES (AUTO) 1.7 10^3/uL (0.5-4.7); ABSOLUTE MONOCYTES (AUTO) 0.5 10^3/uL (0.1-1.4); ABSOLUTE NEUT (AUTO) 3.8 10^3/uL (1.7-8.2); BASOPHILS % (AUTO) 0.7 % (0-2); EOSINOPHILS % (AUTO) 0.8 % (0-6); HEMATOCRIT 31.9 % (36.0-47.0); HEMOGLOBIN 10.6 g/dL (12.0-15.5); LYMPHOCYTES % (AUTO) 27.7 % (13-45); MEAN CORPUSCULAR HEMOGLOBIN 28.4 pg (27.0-33.4); MEAN CORPUSCULAR HGB CONC 33.2 g/dL (32.0-36.0); MEAN CORPUSCULAR VOLUME 86 fl (80-97); MONOCYTES % (AUTO) 7.9 % (3-13); PLATELET COUNT 303 10^3/uL (150-450); RED BLOOD COUNT 3.73 10^6/uL (3.72-5.28); RED CELL DISTRIBUTION WIDTH 16.6 % (11.5-14.0); SEGMENTED NEUTROPHILS % (AUTO) 62.9 % (42-78); TOTAL CELLS COUNTED % (AUTO) 100 %
[2019-04-11 23:17] LABS: APPEARANCE,URINE SLIGHTLY-CLOUDY; BILIRUBIN,URINE NEGATIVE (NEGATIVE); COLOR,URINE YELLOW; GLUCOSE, URINE NEGATIVE (NEGATIVE); KETONES,URINE NEGATIVE (NEGATIVE); LEUKOCYTE ESTERASE,URINE NEGATIVE (NEGATIVE); NITRITE,URINE NEGATIVE (NEGATIVE); PROTEIN,URINE NEGATIVE (NEGATIVE); URINE SPECIFIC GRAVITY 1.024
[2019-04-11 23:25] LABS: ALBUMIN 3.8 g/dL (3.5-5.0); ALKALINE PHOSPHATASE 119 U/L (38-126); ANION GAP 7 (5-19); ASPARTATE AMINO TRANSFERASE 20 U/L (14-36); BILIRUBIN,DIRECT 0.1 mg/dL (0.0-0.4); BILIRUBIN,TOTAL 0.2 mg/dL (0.2-1.3); BLOOD UREA NITROGEN 8 mg/dL (7-20); CALCIUM 8.9 mg/dL (8.4-10.2); CARBON DIOXIDE 26 mmol/L (22-30); CHLORIDE 106 mmol/L (98-107); POTASSIUM 4.2 mmol/L (3.6-5.0); TOTAL PROTEIN 6.6 g/dL (6.3-8.2)
[2019-04-11 23:31] LABS: GLUCOSE 67 mg/dL (75-110)
--- NOTE | 2019-04-11 23:47 | ER Document Report ---
ED Medical Screen (RME) - General Chief Complaint: Abdominal Pain Stated Complaint: ABDOMINAL PAIN,VOMITING Time Seen by Provider: 04/11/19 23:39 Primary Care Provider: LEE CLAYTON DO [Primary Care Provider] - Follow up as needed Notes: Patient is a 33-year-old female presents to the emergency department for g eneralized abdominal pain as well as blood in her stool and hematemesis. Patient states this afternoon she started with generalized abdominal pain and noted multiple episodes of bright red blood in her stool. Patient states she also noted scant amount of bright red blood in her vomit and then it was "really dark." Patient complains of generalized abdominal pain and nausea at this time. Patient states she did see a archives specialist in the past but is unsure of exactly why, states she is on no medications. GENERAL: Alert, interacts well. HEART: Regular rate and rhythm. No murmur ABDOMEN: Soft, Non-distended. Bowel sounds present in all 4 quadrants. Generalized tenderness noted all 4 quadrants, somewhat limited as patient is sitting in a chair. I have greeted and performed a rapid initial assessment of this patient. A comprehensive ED assessment and evaluation of the patient, analysis of test results and completion of the medical decision making process will be conducted by additional ED providers. I have specifically instructed the patient or family members with the patient to immediately return to any nursing staff should anything change in the patient's condition or with their chief complaint. This medical record was dictated with voice recognizing software. There may be grammatical, syntax errors that are unintended. TRAVEL OUTSIDE OF THE [place] IN LAST 30 DAYS: No COUNTRY TRAVELED TO/FROM: [employer] [facility] - Related Data Allergies/Adverse Reactions: latex [Latex] Allergy (Verified 10/29/18 20:36) Past Medical History Pulmonary Medical History: Reports: Hx Bronchitis, Hx Pneumonia Neurological Medical History: Reports: Hx Migraine Renal/ Medical History: Reports: Hx Ovarian Cysts. Denies: Hx Peritoneal Dialysis Psychiatric Medical History: Reports: Hx Anxiety, Hx Bipolar Disorder, Hx Depression Past Surgical History: Reports: Hx Section - x3, Hx Genitourinary Surgery - D&C 07/2018 - Immunizations Hx Diphtheria, Pertussis, Tetanus Vaccination: Yes - 2013 Physical Exam - Vital signs Vitals: Temp Pulse Resp BP Pulse Ox 98.0 F 61 20 124/78 100 04/11/19 21:57 04/11/19 21:57 04/11/19 21:57 04/11/19 21:57 04/11/19 21:57 Course - Vital Signs Vital signs: Temp Pulse Resp BP Pulse Ox 98.0 F 61 20 124/78 100 04/11/19 21:57 04/11/19 21:57 04/11/19 21:57 04/11/19 21:57 04/11/19 21:57 - Laboratory Result Diagrams: 04/11/19 22:25 04/11/19 22:25 Laboratory results interpreted by me: 04/11/19 04/11/19 04/11/19 22:25 22:25 22:25 Hgb 10.6 L Hct 31.9 L RDW 16.6 H Glucose 67 L Urine Urobilinogen 2.0 H Doctor's Discharge - Discharge Referrals: LEE CLAYTON DO [Primary Care Provider] - Follow up as needed
--- NOTE | 2019-04-12 00:45 | RADIOLOGY REPORT (SQ) ---
EXAM DESCRIPTION: XR ABDOMEN SUPINE AND ERECT WITH CHEST (ABD ACUTE SERIES) COMPLETED DATE/TME: 04/11/2019 23:44 CLINICAL HISTORY: 33 years Female, Hematemesis Comparison: None. NUMBER OF VIEWS/TECHNIQUE: 3 LIMITATIONS: None. FINDINGS: Intestinal gas pattern is within normal limits. Paucity of bowel gas. No suspicious calcification. Grossly intact skeletal structures. No acute cardiopulmonary findings. L5 posterior fusion variant. IMPRESSION: No acute findings.
[2019-04-12] MEDS ORDERED: ONDANSETRON 4 MG TAB.RAPDIS PO ONE (00:50)
[2019-04-12] MEDS ORDERED: ACETAMINOPHEN 325 MG TABLET PO ONE (01:05)
[2019-04-12] MEDS ORDERED: ACETAMINOPHEN 325 MG TABLET ONE (01:06)
[2019-04-12] MEDS ORDERED: FENTANYL CITRATE INJ/PF 100 MCG/2 ML AMPUL IV ONE (04:33)
--- NOTE | 2019-04-12 05:58 | RADIOLOGY REPORT (SQ) ---
EXAM DESCRIPTION: CT ABDOMEN PELVIS WITH IV CONTRAST COMPLETED DATE/TME: 04/12/2019 04:33 CLINICAL HISTORY: 33 years Female, RLQ pain Comparison: None. Technique: IV contrast. Coronal and sagittal reformat. This exam was performed according to our departmental dose-optimization program, which includes automated exposure control, adjustment of the mA and/or kV according to patient size and/or use of iterative reconstruction technique. [facility]: Dose Right [facility]: CareDose [facility]: Dose Right [facility]: Teradose 4D [facility]: Flexenclosure LIMITATIONS: None Findings: Small free pelvic fluid. Normal appendix. No pneumoperitoneum. No bowel obstruction. No hydronephrosis or hydroureter. No renal/ureteral stone. No gross evidence of gallbladder inflammation, hepatobiliary obstruction, or portal vein defect. No evidence of abdominal aortic aneurysm. Inferior thorax, liver, gallbladder, pancreas, spleen, adrenals, renal system, gastrointestinal tract, pelvic organs, lymphatics, vasculature, and musculoskeleton appear otherwise unremarkable. IMPRESSION: Small free pelvic fluid. Else, unremarkable.
--- NOTE | 2019-04-12 06:09 | ER Document Report ---
ED GI/ - General Chief Complaint: Abdominal Pain Stated Complaint: ABDOMINAL PAIN,VOMITING Time Seen by Provider: 04/11/19 23:39 Primary Care Provider: LEE CLAYTON DO [NO LOCAL MD] - Follow up as needed Notes: Patient is a 33-year-old female presents to the emergency department for generalized abdominal pain as well as blood in her stool and hematemesis. Patient states this afternoon she started with generalized abdominal pain and noted multiple episodes of bright red blood in her stool. Patient states she also noted scant amount of bright red blood in her vomit and then it was "really dark." Patient complains of generalized abdominal pain and nausea at this time. Patient states she did see a clinic administrator in the past but is unsure of exactly why, states she is on no medications. Patient's denying dysuria or vaginal discharge. TRAVEL OUTSIDE OF THE [place] IN LAST 30 DAYS: No COUNTRY TRAVELED TO/FROM: [employer] - Related Data Allergies/Adverse Reactions: latex [Latex] Allergy (Verified 10/29/18 20:36) Past Medical History - General Information source: Patient - Social History Smoking Status: Never Smoker Frequency of alcohol use: None Drug Abuse: None Family History: Reviewed & Not Pertinent Patient has suicidal ideation: No Patient has homicidal ideation: No Pulmonary Medical History: Reports: Hx Bronchitis, Hx Pneumonia Neurological Medical History: Reports: Hx Migraine Renal/ Medical History: Reports: Hx Ovarian Cysts. Denies: Hx Peritoneal Dialysis Psychiatric Medical History: Reports: Hx Anxiety, Hx Bipolar Disorder, Hx Depression Past Surgical History: Reports: Hx Section - x3, Hx Genitourinary Surgery - D&C 07/2018 - Immunizations Hx Diphtheria, Pertussis, Tetanus Vaccination: Yes - 2013 Hx Pneumococcal Vaccination: 09/01/12 Review of Systems - Review of Systems Constitutional: denies: Fever EENT: No symptoms reported Cardiovascular: No symptoms reported Respiratory: No symptoms reported Gastrointestinal: See HPI Genitourinary: See HPI Female Genitourinary: See HPI, Last menstrual period - Unknown Musculoskeletal: No symptoms reported Skin: No symptoms reported Hematologic/Lymphatic: No symptoms reported Neurological/Psychological: No symptoms reported Physical Exam - Vital signs Vitals: Temp Pulse Resp BP Pulse Ox 98.0 F 61 20 124/78 100 04/11/19 21:57 04/11/19 21:57 04/11/19 21:57 04/11/19 21:57 04/11/19 21:57 - Notes Notes: GENERAL: Alert, interacts well. No acute distress. HEAD: Normocephalic, atraumatic. EYES: Pupils equal, round, and reactive to light. Extraocular movements intact. ENT: Oral mucosa moist, tongue midline. NECK: Full range of motion. Supple. Trachea midline. LUNGS: Clear to auscultation bilaterally, no wheezes, rales, or rhonchi. No respiratory distress. HEART: Regular rate and rhythm. No murmur ABDOMEN: Soft, Non-distended. Bowel sounds present in all 4 quadrants. Generalized tenderness noted right lower quadrant, left lower quadrant. EXTREMITIES: Moves all 4 extremities spontaneously. No edema, normal radial and dorsalis pedis pulses bilaterally. No cyanosis. BACK: no cervical, thoracic, lumbar midline tenderness. No saddle anesthesia, n ormal distal neurovascular exam. NEUROLOGICAL: Alert and oriented x3. Normal speech. cranial nerves II through XII grossly intact PSYCH: Normal affect, normal mood. SKIN: Warm, dry, normal turgor. No rashes or lesions noted. 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 No melena noted on exam. Brown stool noted on glove. Course - Re-evaluation Re-evalutation: 04/12/19 06:08 Laboratory 04/11/19 04/11/19 04/11/19 22:25 22:25 22:25 WBC 6.0 RBC 3.73 Hgb 10.6 L Hct 31.9 L MCV 86 MCH 28.4 MCHC 33.2 RDW 16.6 H Plt Count 303 Seg Neutrophils % 62.9 Lymphocytes % 27.7 Monocytes % 7.9 Eosinophils % 0.8 Basophils % 0.7 Absolute Neutrophils 3.8 Absolute Lymphocytes 1.7 Absolute Monocytes 0.5 Absolute Eosinophils 0.1 Absolute Basophils 0.0 Sodium 139.0 Potassium 4.2 Chloride 106 Carbon Dioxide 26 Anion Gap 7 BUN 8 Creatinine 0.71 Est GFR ( Amer) > 60 Est GFR (Non-Af Amer) > 60 Glucose 67 L Calcium 8.9 Total Bilirubin 0.2 Direct Bilirubin 0.1 Neonat Total Bilirubin Not Reportable Neonat Direct Bilirubin Not Reportable Neonat Indirect Bili Not Reportable AST 20 ALT 16 Alkaline Phosphatase 119 Total Protein 6.6 Albumin 3.8 Lipase 91.9 Urine Color YELLOW Urine Appearance SLIGHTLY-CLOUDY Urine pH 6.0 Ur Specific [place] 1.024 Urine Protein NEGATIVE Urine Glucose (UA) NEGATIVE Urine Ketones NEGATIVE Urine Blood NEGATIVE Urine Nitrite NEGATIVE Urine Bilirubin NEGATIVE Urine Urobilinogen 2.0 H Ur Leukocyte Esterase NEGATIVE Urine WBC (Auto) 5 Urine RBC (Auto) 3 Urine Bacteria (Auto) TRACE Squamous Epi Cells Auto 7 Urine Mucus (Auto) FEW Urine Ascorbic Acid NEGATIVE Urine HCG, Qual POC Stool Occult Blood 04/11/19 04/12/19 22:25 04:41 WBC RBC Hgb Hct MCV MCH MCHC RDW Plt Count Seg Neutrophils % Lymphocytes % Monocytes % Eosinophils % Basophils % Absolute Neutrophils Absolute Lymphocytes Absolute Monocytes Absolute Eosinophils Absolute Basophils Sodium Potassium Chloride Carbon Dioxide Anion Gap BUN Creatinine Est GFR ( Amer) Est GFR (Non-Af Amer) Glucose Calcium Total Bilirubin Direct Bilirubin Neonat Total Bilirubin Neonat Direct Bilirubin Neonat Indirect Bili AST ALT Alkaline Phosphatase Total Protein Albumin Lipase Urine Color Urine Appearance Urine pH Ur Specific [place] Urine Protein Urine Glucose (UA) Urine Ketones Urine Blood Urine Nitrite Urine Bilirubin Urine Urobilinogen Ur Leukocyte Esterase Urine WBC (Auto) Urine RBC (Auto) Urine Bacteria (Auto) Squamous Epi Cells Auto Urine Mucus (Auto) Urine Ascorbic Acid Urine HCG, Qual NEGATIVE POC Stool Occult Blood NEGATIVE Acute Abdomen Series 04/11/19 23:44 IMPRESSION: No acute findings. Abdomen/Pelvis CT 04/12/19 04:33 IMPRESSION: Small free pelvic fluid. Else, unremarkable. Patient's labs show no signs of leukocytosis, do show signs of anemia. Patient voices that she knows she is anemic. States she used to take iron pills and s till helps them at home. Patient's guaiac stool testing was negative for occult blood. Patient's CT abdomen pelvis shows small free pelvic fluid otherwise unremarkable. After Zofran and fentanyl in the emergency department patient states she overall feels a lot better. Patient has been able to p.o. fluids with no further episodes of vomiting. I discussed close follow-up with primary care provider with close return precautions. I have also discussed follow-up with gastroenterology. Patient voices understanding. At this time will discharge with return precautions and follow-up recommendati ons. Verbal discharge instructions given a the bedside and opportunity for questions given. Medication warnings reviewed. Patient is in agreement with this plan and has verbalized understanding of return precautions and the need for primary care follow-up in the next 24-72 hours. This medical record was dictated with voice recognizing software. There may be grammatical, syntax errors that are unintended. 04/12/19 06:12 - Vital Signs Vital signs: Temp Pulse Resp BP Pulse Ox 97.7 F 51 L 20 123/78 99 04/12/19 03:34 04/12/19 03:34 04/12/19 03:34 04/12/19 03:34 04/12/19 03:34 - Laboratory Result Diagrams: 04/11/19 22:25 04/11/19 22:25 Laboratory results interpreted by me: 04/11/19 04/11/19 04/11/19 22:25 22:25 22:25 Hgb 10.6 L Hct 31.9 L RDW 16.6 H Glucose 67 L Urine Urobilinogen 2.0 H Discharge - Discharge Clinical Impression: Abdominal pain Qualifiers: Abdominal location: generalized Qualified Code(s): R10.84 - Generalized abdominal pain Vomiting Qualifiers: Vomiting type: hematemesis Nausea presence: with nausea Qualified Code(s): K92.0 - Hematemesis Condition: Stable Disposition: HOME, SELF-CARE Instructions: Vomiting ([facility]), Abdominal Pain ([facility]), Antinausea Medication ([facility]) Additional Instructions: As we discussed you have been seen and treated in the emergency department for generalized abdominal pain and vomiting. Your labs reveal no signs of overwhelming infection. Your labs do reveal signs of anemia. Please make sure he follow-up with your primary care provider for continued testing and treatment. Please make sure you take nausea medication as prescribed. Please a lso make sure should you have any further episodes of bloody poop or bloody vomit you return to the emergency room. Please also return to the emergency room should you have lightheadedness, dizziness, weakness. Please return to the emergency room for any further concerns. I have also provided phone numbers for gastroenterology. Please follow-up with them as well. Prescriptions: Ondansetron [Zofran Odt 4 mg Tablet] 2 tab PO Q6 #15 tab.rapdis Forms: Return to Work Referrals: LEE CLAYTON I, [NO LOCAL MD] - Follow up as needed EBONY BLUNT MD [ACTIVE STAFF] - Follow up as needed
[2019-04-12 06:19] VITALS: BP 140/91
== END 2019-04-12 06:21 | disposition home or self-care (01) ==
LOC: ER 21:45
DX: R10.84 Generalized abdominal pain (principal); K92.0 Hematemesis; K92.1 Melena; Z91.040 Latex allergy status; R18.8 Other ascites
CPT/HCPCS: 36415; 83690; 85025; 81025; 80053; 81001; 74022; 74177; J3490; S0119; J3010; 96374; 99284

== ENCOUNTER 2019-11-09 10:37 | Outpatient (CLI) | payer MEDICAID ==
[2019-11-09] MEDS ORDERED: RINGERS SOLUTION,LACTATED 1,000 ML IV ONE (11:27)
[2019-11-09 11:39] LABS: APPEARANCE,URINE CLEAR; BILIRUBIN,URINE NEGATIVE (NEGATIVE); COLOR,URINE YELLOW; GLUCOSE, URINE NEGATIVE (NEGATIVE); KETONES,URINE NEGATIVE (NEGATIVE); LEUKOCYTE ESTERASE,URINE NEGATIVE (NEGATIVE); NITRITE,URINE NEGATIVE (NEGATIVE); PROTEIN,URINE NEGATIVE (NEGATIVE); URINE SPECIFIC GRAVITY 1.011; UROBILINOGEN,URINE NEGATIVE mg/dL (<2.0)
[2019-11-09 12:00] LABS: URINE AMPHETAMINES SCREEN NEGATIVE; URINE BARBITURATES SCREEN NEGATIVE; URINE BENZODIAZEPINES SCREEN NEGATIVE; URINE COCAINE SCREEN NEGATIVE; URINE METHADONE SCREEN NEGATIVE; URINE PHENCYCLIDINE SCREEN NEGATIVE
[2019-11-09 12:05] LABS: URINE MARIJUANA (THC) SCREEN UNCONFIRMED POSITIVE
[2019-11-09] MEDS ORDERED: TERBUTALINE SULFATE INJ/PF 1 MG/1 ML SDV ONE (12:53)
[2019-11-09] MEDS ORDERED: TERBUTALINE SULFATE INJ/PF 1 MG/1 ML SDV SUBCUT ONE (12:58)
[2019-11-09 13:07] LABS: ABSOLUTE BASOPHILS # (AUTO) 0.1 10^3/uL (0.0-0.2); ABSOLUTE EOSINOPHILS # (AUTO) 0.1 10^3/uL (0.0-0.6); ABSOLUTE LYMPHOCYTES (AUTO) 1.6 10^3/uL (0.5-4.7); ABSOLUTE MONOCYTES (AUTO) 0.6 10^3/uL (0.1-1.4); ABSOLUTE NEUT (AUTO) 5.4 10^3/uL (1.7-8.2); BASOPHILS % (AUTO) 0.6 % (0-2); EOSINOPHILS % (AUTO) 0.9 % (0-6); HEMATOCRIT 31.3 % (36.0-47.0); LYMPHOCYTES % (AUTO) 21.1 % (13-45); MEAN CORPUSCULAR HGB CONC 35.2 g/dL (32.0-36.0); MEAN CORPUSCULAR VOLUME 88 fl (80-97); PLATELET COUNT 252 10^3/uL (150-450); RED BLOOD COUNT 3.56 10^6/uL (3.72-5.28); SEGMENTED NEUTROPHILS % (AUTO) 69.4 % (42-78); TOTAL CELLS COUNTED % (AUTO) 100 %; WHITE BLOOD COUNT 7.8 10^3/uL (4.0-10.5)
[2019-11-09] MEDS ORDERED: NIFEDIPINE 10 MG CAPSULE PO ONE (13:20)
[2019-11-09] MEDS ORDERED: NIFEDIPINE 10 MG CAPSULE ONE (13:23)
[2019-11-09 13:26] LABS: ALBUMIN 3.3 g/dL (3.5-5.0); ALKALINE PHOSPHATASE 65 U/L (38-126); ANION GAP 8 (5-19); ASPARTATE AMINO TRANSFERASE 17 U/L (14-36); BILIRUBIN,DIRECT 0.2 mg/dL (0.0-0.4); BILIRUBIN,TOTAL 0.4 mg/dL (0.2-1.3); BLOOD UREA NITROGEN 3 mg/dL (7-20); CALCIUM 8.6 mg/dL (8.4-10.2); CARBON DIOXIDE 22 mmol/L (22-30); CHLORIDE 107 mmol/L (98-107); GLUCOSE 71 mg/dL (75-110); POTASSIUM 3.9 mmol/L (3.6-5.0); TOTAL PROTEIN 6.4 g/dL (6.3-8.2)
[2019-11-09] MEDS ORDERED: SIMETHICONE 80 MG TAB.CHEW PO ONE (13:40)
[2019-11-09] MEDS ORDERED: SIMETHICONE 80 MG TAB.CHEW ONE (13:56)
--- NOTE | 2019-11-09 14:17 | RADIOLOGY REPORT (SQ) ---
EXAM DESCRIPTION: U/S ABDOMEN LIMITED W/O DOP COMPLETED DATE/TIME: 11/09/2019 1:30 pm REASON FOR STUDY: Right lower quadrant, rule out appendicitis COMPARISON: None. TECHNIQUE: Dynamic and static grayscale images acquired of the abdomen and recorded on PACS. Additio nal selected color Doppler and spectral images recorded. LIMITATIONS: None. FINDINGS: Limited sonographic imaging of the right lower quadrant fails to identify the appendix. T here is what appears to be a 3.4 by 0.8 cm lymph node. The right kidney is normal and measures 12 cm . IMPRESSION: The appendix is not identified. Findings as described. TECHNICAL DOCUMENTATION: JOB ID: [id number] 2010 [employer]- All Rights Reserved Reading location - IP/workstation name: [email or web address]
== END 2019-11-09 14:19 | disposition home or self-care (01) ==
LOC: LC 10:37
PROVIDERS: ATTEND Obstetrics & Gynecology
PROC: 4A1HXCZ Monitoring of Products of Conception, Cardiac Rate, External Approach (ICD-10-PCS; principal; 2019-11-09)
DX: O26.892 Other specified pregnancy related conditions, second trimester (principal); R10.31 Right lower quadrant pain; Z3A.20 20 weeks gestation of pregnancy
CPT/HCPCS: 59899; 94760; 36415; 83690; 85025; 81005; 80053; 80307; 76705; G0480 ×2; J3490; J3105; 80349

== ENCOUNTER 2019-11-14 00:55 | Outpatient (CLI) | payer MEDICAID ==
[2019-11-14 01:32] LABS: APPEARANCE,URINE CLEAR; BILIRUBIN,URINE NEGATIVE (NEGATIVE); COLOR,URINE YELLOW; GLUCOSE, URINE NEGATIVE (NEGATIVE); KETONES,URINE NEGATIVE (NEGATIVE); LEUKOCYTE ESTERASE,URINE NEGATIVE (NEGATIVE); NITRITE,URINE NEGATIVE (NEGATIVE); PROTEIN,URINE NEGATIVE (NEGATIVE); URINE SPECIFIC GRAVITY 1.006; UROBILINOGEN,URINE NEGATIVE mg/dL (<2.0)
[2019-11-14 01:48] LABS: URINE AMPHETAMINES SCREEN NEGATIVE; URINE BARBITURATES SCREEN NEGATIVE; URINE BENZODIAZEPINES SCREEN NEGATIVE; URINE COCAINE SCREEN NEGATIVE; URINE METHADONE SCREEN NEGATIVE; URINE PHENCYCLIDINE SCREEN NEGATIVE
[2019-11-14 01:54] LABS: URINE MARIJUANA (THC) SCREEN UNCONFIRMED POSITIVE
--- NOTE | 2019-11-14 03:17 | RADIOLOGY REPORT (SQ) ---
EXAM DESCRIPTION: US LIMITED COMPLETED DATE/TME: 11/14/2019 00:00 CLINICAL HISTORY: 34 years Female, ctx's Comparison: 10/30/18 TECHNIQUE/LIMITATION: Targeted OB sonogram for requested parameters only. FINDINGS: Single IUP EGA is 21w4d with TATI of 03/28/20 EFW is 378g Cardiac activity: 139-bpm. LUCIA: 13.4-cm DVP: 4.0 x 8.1-cm Placenta: Anterior, low-lying placenta. There is 1.9 cm likely clot in an area of cervical funneling which may indicate partial/recent abruption. Presentation: Transverse. Cervical length: 2.1 cm in length with funneling measuring 1.9 cm in diameter and likely 1.9 x 0.8 x 1.2 cm clot within area of funneling. IMPRESSION: 1. Anterior, low-lying placenta. There is 1.9 cm likely clot in an area of cervical funneling which may indicate partial/recent abruption. 2. Cervical funneling may indicate labor or cervical insufficiency. Cervis is 2.1 cm in length with funneling measuring 1.9 cm in diameter and likely 1.9 x 0.8 x 1.2 cm clot within area of funneling consistent with history of contractions. 3. Recommendation: Immediate OB referral 4. Targeted OB sonogram for requested parameters
[2019-11-14] MEDS ORDERED: NIFEDIPINE 30 MG TAB.ER.24 PO ONE ×2 (04:00→04:01)
== END 2019-11-14 05:13 | disposition home or self-care (01) ==
LOC: LC 00:55
PROVIDERS: ATTEND Obstetrics & Gynecology
PROC: 4A1HXCZ Monitoring of Products of Conception, Cardiac Rate, External Approach (ICD-10-PCS; principal; 2019-11-14)
DX: O26.892 Other specified pregnancy related conditions, second trimester (principal); Z3A.21 21 weeks gestation of pregnancy
CPT/HCPCS: 81025; 81001; 80307; 76815; 59899; G0480 ×2; J3490; 80349

== ENCOUNTER 2020-03-12 01:18 | Outpatient (CLI) | payer MEDICAID ==
[2020-03-12 02:02] LABS: APPEARANCE,URINE CLEAR; BILIRUBIN,URINE NEGATIVE (NEGATIVE); COLOR,URINE STRAW; GLUCOSE, URINE NEGATIVE (NEGATIVE); KETONES,URINE NEGATIVE (NEGATIVE); LEUKOCYTE ESTERASE,URINE NEGATIVE (NEGATIVE); NITRITE,URINE NEGATIVE (NEGATIVE); PROTEIN,URINE NEGATIVE (NEGATIVE); URINE SPECIFIC GRAVITY 1.006; UROBILINOGEN,URINE NEGATIVE mg/dL (<2.0)
[2020-03-12 02:28] LABS: URINE AMPHETAMINES SCREEN NEGATIVE; URINE BARBITURATES SCREEN NEGATIVE; URINE BENZODIAZEPINES SCREEN NEGATIVE; URINE COCAINE SCREEN NEGATIVE; URINE MARIJUANA (THC) SCREEN NEGATIVE; URINE METHADONE SCREEN NEGATIVE; URINE PHENCYCLIDINE SCREEN NEGATIVE
--- NOTE | 2020-03-12 03:27 | Non Stress Test Report ---
Non Stress Test Datetime Report Generated by CPN: 03/12/2020 03:27 DEMOGRAPHIC EGA NST: 38.4 INDICATION Indication for Study (NST) Other: >32 weeks URINE RESULTS Urine Protein, NST: Negative Urine Ketones - NST: Negative Urine Glucose - NST: Negative Urine Blood - NST: Negative MONITORING Monitor Explained: Monitor Explained; Test Explained; Patient Verbalized Understanding Time on Monitor: 03/12/2020 01:36 Time off Monitor: 03/12/2020 02:17 NST Duration: 41 NST INTERVENTIONS NST Interventions: PO Hydration Physician Notified NST: Dr. Hernnadez BABY A: [id number] BABY A Movement : Present Contraction Frequency : Uterine irritability FHR Baseline : 135 Accelerations : 15X15 Decelerations : None Variability : Moderate 6-25bpm NST Review: Does Not Meet Criteria for Reactive NST NST Review and Verified By : ayaka VENEGAS Results: Reactive NST REPORT Report Trigger: Send Report
== END 2020-03-12 04:15 | disposition home or self-care (01) ==
LOC: LC 01:18
PROVIDERS: ATTEND Obstetrics & Gynecology
DX: O47.1 False labor at or after 37 completed weeks of gestation (principal); Z3A.38 38 weeks gestation of pregnancy; Z91.040 Latex allergy status
CPT/HCPCS: 59025; 80307; 81005

== ENCOUNTER 2020-03-15 06:14 | Inpatient (IN) | payer MEDICAID ==
[2020-03-13 12:18] LABS: APPEARANCE,URINE CLEAR; BILIRUBIN,URINE NEGATIVE (NEGATIVE); COLOR,URINE YELLOW; GLUCOSE, URINE NEGATIVE (NEGATIVE); KETONES,URINE NEGATIVE (NEGATIVE); LEUKOCYTE ESTERASE,URINE NEGATIVE (NEGATIVE); NITRITE,URINE NEGATIVE (NEGATIVE); PROTEIN,URINE NEGATIVE (NEGATIVE); URINE SPECIFIC GRAVITY 1.016
[2020-03-13 12:26] LABS: ABSOLUTE BASOPHILS # (AUTO) 0.1 10^3/uL (0.0-0.2); ABSOLUTE LYMPHOCYTES (AUTO) 1.4 10^3/uL (0.5-4.7); ABSOLUTE MONOCYTES (AUTO) 0.9 10^3/uL (0.1-1.4); ABSOLUTE NEUT (AUTO) 5.1 10^3/uL (1.7-8.2); BASOPHILS % (AUTO) 0.9 % (0-2); EOSINOPHILS % (AUTO) 0.5 % (0-6); HEMATOCRIT 30.3 % (36.0-47.0); HEMOGLOBIN 10.3 g/dL (12.0-15.5); LYMPHOCYTES % (AUTO) 18.6 % (13-45); MEAN CORPUSCULAR HEMOGLOBIN 29.3 pg (27.0-33.4); MEAN CORPUSCULAR VOLUME 86 fl (80-97); MONOCYTES % (AUTO) 11.8 % (3-13); PLATELET COUNT 283 10^3/uL (150-450); RED BLOOD COUNT 3.52 10^6/uL (3.72-5.28); RED CELL DISTRIBUTION WIDTH 16.1 % (11.5-14.0); SEGMENTED NEUTROPHILS % (AUTO) 68.2 % (42-78); TOTAL CELLS COUNTED % (AUTO) 100 %; WHITE BLOOD COUNT 7.4 10^3/uL (4.0-10.5)
[2020-03-13 12:44] LABS: URINE AMPHETAMINES SCREEN NEGATIVE; URINE BARBITURATES SCREEN NEGATIVE; URINE BENZODIAZEPINES SCREEN NEGATIVE; URINE COCAINE SCREEN NEGATIVE; URINE MARIJUANA (THC) SCREEN NEGATIVE; URINE METHADONE SCREEN NEGATIVE; URINE PHENCYCLIDINE SCREEN NEGATIVE
[2020-03-15] MEDS ORDERED: PROPOFOL INJ 200 MG/20 ML VIAL IV ONE (06:40)
[2020-03-15] MEDS ORDERED: FENTANYL CITRATE INJ/PF 250 MCG/5 ML AMPULE ONE (06:41)
[2020-03-15] MEDS ORDERED: METHYLERGONOVINE MALEATE INJ/PF 0.2 MG/1 ML AMPULE ONE (06:41)
[2020-03-15] MEDS ORDERED: MISOPROSTOL 0.1 MG TABLET ONE (06:41)
[2020-03-15] MEDS ORDERED: CARBOPROST TROMETHAMINE INJ 250 MCG/1 ML AMPULE ONE (06:41)
[2020-03-15] MEDS ORDERED: MORPHINE SULFATE 10 MG/ML INJ ONE (06:41)
[2020-03-15] MEDS ORDERED: MIDAZOLAM 2 MG/2 ML INJ ONE ×2 (06:41→07:51)
[2020-03-15] MEDS ORDERED: CEFAZOLIN 2 GM/D5W RTU 2 GM/50 ML RTUPB IV ONE (06:43)
[2020-03-15] MEDS ORDERED: OXYTOCIN 10 UNIT/ML VIAL ONE ×3 (06:51→07:27)
[2020-03-15 07:10] LABS: ARTERIAL BLOOD FIO2 CORD BLOOD; ARTERIAL BLOOD PO2 27.5 mmHg (80-100)
[2020-03-15] MEDS ORDERED: MISOPROSTOL 0.2 MG TABLET ONE (07:18)
[2020-03-15] MEDS ORDERED: HYDROMORPHONE HCL INJ/PF 2 MG/ML AMPULE ONE (08:08)
[2020-03-15 08:25] LABS: ABSOLUTE BASOPHILS # (AUTO) 0.1 10^3/uL (0.0-0.2); ABSOLUTE EOSINOPHILS # (AUTO) 0.1 10^3/uL (0.0-0.6); ABSOLUTE LYMPHOCYTES (AUTO) 2.2 10^3/uL (0.5-4.7); ABSOLUTE MONOCYTES (AUTO) 1.1 10^3/uL (0.1-1.4); ABSOLUTE NEUT (AUTO) 14.3 10^3/uL (1.7-8.2); BASOPHILS % (AUTO) 0.3 % (0-2); EOSINOPHILS % (AUTO) 0.3 % (0-6); HEMATOCRIT 26.8 % (36.0-47.0); HEMOGLOBIN 8.9 g/dL (12.0-15.5); LYMPHOCYTES % (AUTO) 12.3 % (13-45); MEAN CORPUSCULAR HEMOGLOBIN 29.4 pg (27.0-33.4); MEAN CORPUSCULAR HGB CONC 33.3 g/dL (32.0-36.0); MEAN CORPUSCULAR VOLUME 88 fl (80-97); MONOCYTES % (AUTO) 6.3 % (3-13); PLATELET COUNT 261 10^3/uL (150-450); RED BLOOD COUNT 3.03 10^6/uL (3.72-5.28); RED CELL DISTRIBUTION WIDTH 15.7 % (11.5-14.0); SEGMENTED NEUTROPHILS % (AUTO) 80.8 % (42-78); TOTAL CELLS COUNTED % (AUTO) 100 %
[2020-03-15 08:26] LABS: WHITE BLOOD COUNT 17.6 10^3/uL (4.0-10.5)
[2020-03-15 08:27] LABS: INTERNATIONAL RATION (INR) 1.13; PROTHROMBIN TIME 14.6 SEC (11.4-15.4)
[2020-03-15 08:28] LABS: FIBRINOGEN 276 mg/dL (209-497); PARTIAL THROMBOPLASTIN TIME 32.2 SEC (23.5-35.8)
[2020-03-15] MEDS ORDERED: NORMAL SALINE 250 ML IV PRN ×2 (08:31)
[2020-03-15] MEDS ORDERED: OXYTOCIN/0.9 % SODIUM CHLORIDE 30 UNIT/500 ML RTUINJ IV PRN (08:32)
[2020-03-15] MEDS ORDERED: MEASLES,MUMPS&RUBELLA VACC/PF 0.5 ML VIAL SUBCUT PRN (08:32)
[2020-03-15] MEDS ORDERED: HYDROMORPHONE HCL INJ/PF 2 MG/ML AMPULE IV PRN (08:32)
[2020-03-15] MEDS ORDERED: ACETAMINOPHEN 1,000 MG/100 ML RTUPB IV PRN (08:32)
[2020-03-15] MEDS ORDERED: PROMETHAZINE HCL INJ 25 MG/1 ML VIAL IV PRN (08:32)
[2020-03-15] MEDS ORDERED: SIMETHICONE 80 MG TAB.CHEW PO PRN (08:32)
[2020-03-15] MEDS ORDERED: RINGERS SOLUTION,LACTATED 1,000 ML IV PRN (08:32)
[2020-03-15] MEDS ORDERED: ACETAMINOPHEN 325 MG TABLET PO PRN (08:32)
[2020-03-15] MEDS ORDERED: OXYCODONE-ACETAMINOPHEN 5-325 MG TABLET PO PRN ×2 (08:32)
[2020-03-15 08:39] LABS: ALBUMIN 2.7 g/dL (3.5-5.0); ALKALINE PHOSPHATASE 117 U/L (38-126); ASPARTATE AMINO TRANSFERASE 22 U/L (14-36); BILIRUBIN,TOTAL 0.4 mg/dL (0.2-1.3); BLOOD UREA NITROGEN 5 mg/dL (7-20); CALCIUM 8.3 mg/dL (8.4-10.2); CARBON DIOXIDE 24 mmol/L (22-30); GLUCOSE 103 mg/dL (75-110); POTASSIUM 3.8 mmol/L (3.6-5.0); TOTAL PROTEIN 5.5 g/dL (6.3-8.2)
[2020-03-15 08:44] LABS: ANION GAP 5 (5-19); CHLORIDE 106 mmol/L (98-107)
--- NOTE | 2020-03-15 08:45 | Brief Operative Note ---
BRIEF OPERATIVE REPORT DATE OF SURGERY: 03/15/20 TIME OF SURGERY: 06:45 PREOPERATIVE DIAGNOSIS: IUP at 38+6ega, h/o section x 3, Abruption, SROM, H/o LEEP, GBS positive, Heart quivering on US, emergency section POSTOPERATIVE DIAGNOSIS: ARABELLA - delivered SURGEON: RAI FERNANDEZ FINDINGS: female infant delivered at 0647, see NICU note for CODE of infant. Normal bilateral tubes/ovaries. Couvalaire uterus, significant abruption with at least 1 liter of Clot. EBL for surgery 800ml (plus abruption), IVF 1400ml, UOP 15ml, QBL 1900ml COMPLICATIONS: abruption ESTIMATED BLOOD LOSS: 800ml TISSUE REMOVED OR ALTERED: placenta and cord sent to pathology TECHNICAL PROCEDURE: Repeat section, Scar revision
--- NOTE | 2020-03-15 08:46 | Operative Report ---
Operative Report DATE OF SURGERY: 03/15/20 PREOPERATIVE DIAGNOSIS: IUP at 38+6ega, h/o section x 3, Abruption, SR OM, H/o LEEP, GBS positive, Heart quivering on US, emergency section POSTOPERATIVE DIAGNOSIS: ARABELLA - delivered OPERATION: Repeat section, Scar revision SURGEON: RAI FERNANDEZ ANESTHESIA: GA TISSUE REMOVED OR ALTERED: placenta abruption COMPLICATIONS: abruption ESTIMATED BLOOD LOSS: 800ml QUANTITATIVE BLOOD LOSS: 1,900 INTRAOPERATIVE FINDINGS: female delivered at 0647, see NICU note for CODE of infant. Normal bilateral tubes/ovaries. Couvalaire uterus, significant abruption with at least 1 liter of Clot. EBL for surgery 800ml (plus abr uption), IVF 1400ml, UOP 15ml, QBL 1900ml, cord gases obtained. NICU team will update patient on status of baby when they have more information. PROCEDURE: Anesthesia provider: [Dr. Caballero, Curt Ramirez REGIONAL MERCHANDISING MANAGER, Jorje Stephens REGIONAL MERCHANDISING MANAGER] Urine output: [15ml] IV fluids: [1400ml] Indications: [34yo at 38+6ega presents via EMS with reported uterine contractions and possible SROM at 0625. Patient noted to have blood on linens from EMS and patient reports that at 0500 she noted leakage of fluid with large amounts of blood. I was called to the room at 0633 for evaluation. At 0634 US performed by myself with minimal heart activity (no M mode since definitenly less than 80s) and heart almost appeared to be quivering. Emergent section was called and reviewed with patient that I was concerned about the baby's survivability with the cardiac activity I was seeing on the US. She agreed to proceed with emergent section. co mplicated GBS positive and history or 3 prior sections and history of LEEP. Risks, benefits, alternatives reviewed and will proceed with section. In OR at 0643 and start incision at 0646.] Procedure: The patient was taken to the operating room where general anesthesia was obtained. She was then prepped and draped in the normal sterile fashion and placed in the dorsal supine position with a leftward tilt. A Pfannenstiel skin incision was then made and carried through to the underlying layers of the fascia with the scalpel. The fascia was incised in the midline and the incision extended laterally with the scalpel. The superior and inferior aspect of the fascial incision was then grasped with Nikhil clamps elevated and the underlying rectus muscles dissected off sharply. The rectus muscles were then in the midline and the peritoneum at the amount identified and entered sharply. The peritoneal incision was then extended superiorly and inferiorly with good visualization of the bladder. The bladder blade was then reinserted and the lower uterine segment incised in a transverse fashion with the scalpel. The uterine incision was then extended bluntly. Large amounts of clot with minimal amniotic fluid were immediately evident. The bladder blade was removed and the infant's head was delivered from cephalic presentation atraumatically. The infant was handed off to waiting pediatricians for treatment. The placenta was then delivered spontaneously and the uterus exteriorized and cleared of all clots and debris with couvelaire uterus noted. The uterine incision was then repaired with 1-0 Vicryl in a running locked fashion. A second layer of the same suture was used to obtain hemostasis via imbrication of the initial layer. Lower uterine segment atony noted and Intramuscular Pitocin 10 units given. The uterus was returned to the patient's abdomen and surgicel was placed overlying the uterine incision to assist with hemostasis. The gu tters were cleared of all clots and debris. All operative sites were noted to be hemostatic. The fascia was reapproximated with 0 Vicryl in a running fashion from each lateral edge to the midline. The skin was closed with 3-0 Monocryl in a running subcuticular fashion with overlying Dermabond for additional dressing as well as wound closure. The patient tolerated the procedure well. Sponge lap needle and instrument counts are correct times 2. 2 g of Ancef were given prior to skin incision. The patient was taken to the recovery area awake and in stable condition.
[2020-03-15] MEDS ORDERED: ROPIVACAINE HCL 0.2% INJ/PF (2 MG/ML) 20 ML SDV ONE (08:58)
[2020-03-15] MEDS ORDERED: FENTANYL CITRATE INJ/PF 100 MCG/2 ML AMPUL ONE (09:05)
[2020-03-15] MEDS ORDERED: LIDOCAINE 2% INJ-PF (20 MG/ML) 2 ML AMPUL ONE (09:24)
[2020-03-15] MEDS ORDERED: PRENATAL VITAMIN W DHA CAPSULE PO SCH (10:00)
[2020-03-15] MEDS: DOCUSATE SODIUM 100 MG CAPSULE PO SCH ×2 (13:58→17:56)
[2020-03-15] MEDS: IBUPROFEN 800 MG TABLET PO SCH ×2 (14:01→17:56)
[2020-03-15] MEDS: CEFAZOLIN 1 GM/D5W RTU 1 GM/50 ML RTUPB IV SCH ×2 (14:01→17:57)
[2020-03-15] MEDS ORDERED: SUCCINYLCHOLINE CHLORIDE INJ 200 MG/10 ML VIAL ONE (14:35)
[2020-03-15] MEDS ORDERED: DEXAMETHASONE SOD PHOSPHATE INJ 4 MG/1 ML VIAL ONE (14:35)
[2020-03-15] MEDS ORDERED: ONDANSETRON HCL INJ/PF 4 MG/2 ML SDV ONE (14:35)
[2020-03-15 15:35] LABS: HEMATOCRIT 27.3 % (36.0-47.0); HEMOGLOBIN 9.2 g/dL (12.0-15.5); MEAN CORPUSCULAR HEMOGLOBIN 28.7 pg (27.0-33.4); MEAN CORPUSCULAR HGB CONC 33.7 g/dL (32.0-36.0); MEAN CORPUSCULAR VOLUME 85 fl (80-97); PLATELET COUNT 245 10^3/uL (150-450); RED BLOOD COUNT 3.21 10^6/uL (3.72-5.28); RED CELL DISTRIBUTION WIDTH 15.9 % (11.5-14.0); WHITE BLOOD COUNT 19.8 10^3/uL (4.0-10.5)
--- NOTE | 2020-03-15 15:58 | PDOC PROGRESS REPORT ---
Subjective-OB Progress Note for:: 03/15/20 Subjective: c/o of pain in rt upper chest and moving to left upper chest, Physical Exam (OB) Vital Signs: Temp Pulse Resp BP Pulse Ox 97.3 F 90 18 119/78 100 03/15/20 15:04 03/15/20 15:04 03/15/20 15:04 03/15/20 15:04 03/15/20 15:04 Intake & Output 03/14/20 03/15/20 03/16/20 06:59 06:59 06:59 Intake Total 590 Balance 590 - Lochia Lochia Amount: Small 10-25 ml Lochia Color: Rubra/Red - Abdomen Fundal Description: Firm Fundal Height: u/u - u/2 Objective-Diagnostic Laboratory: 03/15/20 14:59 03/15/20 08:02 03/15/20 03/15/20 03/15/20 06:47 08:02 08:02 WBC 17.6 H D RBC 3.03 L Hgb 8.9 L Hct 26.8 L MCV 88 MCH 29.4 MCHC 33.3 RDW 15.7 H Plt Count 261 Seg Neutrophils % 80.8 H Carbonic Acid Not Reportable HCO3/H2CO3 Ratio Not Reportable ABG pH Not Reportable ABG pCO2 Not Reportable ABG pO2 27.5 L* ABG HCO3 Not Reportable ABG O2 Saturation Not Reportable ABG Base Excess Not Reportable FiO2 CORD BLOOD Sodium Potassium Chloride Carbon Dioxide Anion Gap BUN Creatinine Est GFR ( Amer) Glucose Calcium Total Bilirubin AST Alkaline Phosphatase Total Protein Albumin Blood Type O POSITIVE Antibody Screen NEGATIVE 03/15/20 03/15/20 08:02 14:59 WBC 19.8 H RBC 3.21 L Hgb 9.2 L Hct 27.3 L MCV 85 MCH 28.7 MCHC 33.7 RDW 15.9 H Plt Count 245 Seg Neutrophils % Carbonic Acid HCO3/H2CO3 Ratio ABG pH ABG pCO2 ABG pO2 ABG HCO3 ABG O2 Saturation ABG Base Excess FiO2 Sodium 134.6 L Potassium 3.8 Chloride 106 Carbon Dioxide 24 Anion Gap 5 BUN 5 L Creatinine 0.65 Est GFR ( Amer) > 60 Glucose 103 Calcium 8.3 L Total Bilirubin 0.4 AST 22 Alkaline Phosphatase 117 Total Protein 5.5 L Albumin 2.7 L Blood Type Antibody Screen Assessment and Plan(PN) - Assessment and Plan (1) Anemia Qualifiers: Other causes of anemia: acute posthemorrhagic Is this a current diagnosis for this admission?: Yes (2) Anemia due to acute blood loss Is this a current diagnosis for this admission?: Yes (3) Placenta abruption, delivered, current hospitalization Is this a current diagnosis for this admission?: Yes (4) S/P repeat low transverse Is this a current diagnosis for this admission?: Yes (5) Transfusion of blood during current hospitalisation Is this a current diagnosis for this admission?: Yes - Time Spent with Patient Time with patient: 15-25 minutes Medications reviewed and adjusted accordingly: Yes - Disposition Disposition: pt calm, BP, Pulse OX normal, vs normal, pt does not appear anxious, Mylicon given, cold cloth, mild incisional pain. Talked to [facility], baby having seizure, kidneys are affected, starting cooling blanket, mother at BS. Pt stable when I left room, needs to rest, asked about going to [facility] today, suggested we wait till AM when she is more stable, pt agrees
[2020-03-15 17:12] LABS: APPEARANCE,URINE CLEAR; BILIRUBIN,URINE NEGATIVE (NEGATIVE); COLOR,URINE YELLOW; GLUCOSE, URINE NEGATIVE (NEGATIVE); KETONES,URINE NEGATIVE (NEGATIVE); LEUKOCYTE ESTERASE,URINE NEGATIVE (NEGATIVE); NITRITE,URINE NEGATIVE (NEGATIVE); PROTEIN,URINE NEGATIVE (NEGATIVE); URINE SPECIFIC GRAVITY 1.011; UROBILINOGEN,URINE NEGATIVE mg/dL (<2.0)
[2020-03-15 17:33] LABS: URINE AMPHETAMINES SCREEN NEGATIVE; URINE BARBITURATES SCREEN NEGATIVE; URINE COCAINE SCREEN NEGATIVE; URINE MARIJUANA (THC) SCREEN NEGATIVE; URINE METHADONE SCREEN NEGATIVE; URINE PHENCYCLIDINE SCREEN NEGATIVE
[2020-03-15 17:37] LABS: URINE BENZODIAZEPINES SCREEN UNCONFIRMED POSITIVE
--- NOTE | 2020-03-15 18:10 | PDOC TRANSFER SUMMARY ---
General Admission Date/PCP: 03/15/20 06:38 ANA HEWITT MD Admission Date: 03/15/20 Transfer Date: 03/15/20 Accepting Facility: [facility] Accepting Physician: Sandy Cuellar Resuscitation Status: Full Code - Transfer Diagnosis (1) S/P repeat low transverse Is this a current diagnosis for this admission?: Yes Diagnosis Summary: The pt had a c section this am for abruption and the baby was transferred for care. She is now stable and has received one unit of blood and is being transferred to be close to the . - Transfer Medications Home Medications: Vit,Calc76/Iron/Folic [Pnv 29-1 Tablet] 1 tab PO DAILY 11/14/19 Transfer Medications: Current Medications Acetaminophen (Tylenol 325 Mg Tablet) 650 mg PO Q4HP PRN PRN Reason: fever greater than 101 F Stop: 04/14/20 08:31 Docusate Sodium (Colace 100 Mg Capsule) 100 mg PO BID GILBERTO Stop: 04/14/20 09:59 Last Admin: 03/15/20 17:56 Dose: 100 mg Documented by: Hydromorphone HCl (Dilaudid Inj/Pf 2 Mg/Ml Ampule) 2 mg IV Q3HP PRN PRN Reason: FOR PAIN SCALE 4-5 Stop: 03/22/20 08:31 Sodium Chloride (Nacl 0.9% 250 Ml Iv Soln) 250 mls @ 30 mls/hr IV .DURING TRANSFUSION PRN PRN Reason: THIS MED IS NOT "PRN" Stop: 03/16/20 08:30 Sodium Chloride (Nacl 0.9% 250 Ml Iv Soln) 250 mls @ 0 mls/hr IV CONTINUOUS PRN PRN Reason: AFTER EACH UNIT Stop: 03/16/20 08:30 Lactated Ringer's (Lactated Ringers 1000 Ml Iv Soln) 1,000 mls @ 125 mls/hr IV CONTINUOUS PRN PRN Reason: THIS MED IS NOT "PRN" Stop: 04/14/20 08:31 Oxytocin/Sodium Chloride (Pitocin Rtu 30 Units-Ns 500 Ml Premix Bag) 30 unit in 500 mls @ 0 mls/hr IV CONTINUOUS PRN PRN Reason: THIS MED IS NOT "PRN" Stop: 03/16/20 23:59 Acetaminophen (Ofirmev Inj/Pf 1000 Mg/100 Ml Sdv) 1,000 mg in 100 mls @ 400 mls/hr IV ONCEP PRN PRN Reason: THIS MED IS NOT "PRN" Cefazolin Sodium/Dextrose (Ancef Rtu 1 Gm/D5w 50 Ml Premix Bag) 1 gm in 50 mls @ 100 mls/hr IV Q6 [facility] Stop: 03/22/20 11:59 Last Admin: 03/15/20 17:57 Dose: 100 mls/hr, 100 mls/hr Documented by: Ibuprofen (Motrin 800 Mg Tablet) 800 mg PO Q6 [facility] Stop: 04/14/20 11:59 Last Admin: 03/15/20 17:56 Dose: 800 mg Documented by: Measles/Mumps/Rubella Vaccine Live (M-M-R Ii Vaccine Kit 0.5 Ml) 0.5 ml SUBCUT .DISCHARGE PRN PRN Reason: IF NON-IMMUNE Stop: 04/14/20 08:31 Oxycodone/Acetaminophen (Percocet 5-325 Mg Tablet) 1 tab PO Q4HP PRN PRN Reason: FOR PAIN SCALE 1-2 Stop: 03/22/20 08:31 Oxycodone/Acetaminophen (Percocet 5-325 Mg Tablet) 2 tab PO Q4HP PRN PRN Reason: FOR PAIN SCALE 3-5 Stop: 03/22/20 08:31 Vit/Iron/Folic Acid/DHA ( Multi + Dha Capsule) 1 cap PO DAILY [facility] Stop: 04/14/20 09:59 Last Admin: 03/15/20 13:59 Dose: Not Given Documented by: Promethazine HCl (Phenergan Inj 25 Mg/1 Ml Vial) 25 mg IV Q6HP PRN PRN Reason: nausea and vomiting Stop: 04/14/20 08:31 Last Admin: 03/15/20 11:08 Dose: 25 mg Documented by: Simethicone (Mylicon 80 Mg Chewable Tablet) 80 mg PO QIDP PRN PRN Reason: FOR GAS (FLATULENCE) Stop: 04/14/20 08:31 Last Admin: 03/15/20 15:36 Dose: 80 mg Documented by: - Allergies Allergies/Adverse Reactions: latex [Latex] Allergy (Verified 03/12/20 01:27) Hospital Course Hospital Course: see above Physical Exam Vital Signs: Temp Pulse Resp BP Pulse Ox 98.0 F 85 18 118/73 100 03/15/20 17:57 03/15/20 17:57 03/15/20 17:57 03/15/20 17:57 03/15/20 17:57 Intake & Output 03/14/20 03/15/20 03/16/20 06:59 06:59 06:59 Intake Total 1070 Output Total 1250 Balance -180 Weight 134.717 kg General appearance: PRESENT: no acute distress, well-developed, well-nourished Head exam: PRESENT: atraumatic, normocephalic Eye exam: PRESENT: conjunctiva pink, EOMI, PERRLA. ABSENT: scleral icterus Respiratory exam: PRESENT: clear to auscultation nick. ABSENT: rales, rhonchi, wheezes Cardiovascular exam: PRESENT: RRR. ABSENT: diastolic murmur, rubs, systolic murmur Pulses: PRESENT: normal dorsalis pedis pul Vascular exam: PRESENT: normal capillary refill GI/Abdominal exam: PRESENT: other - expected tenderness post c section Extremities exam: PRESENT: full ROM. ABSENT: calf tenderness, clubbing, pedal edema Results Laboratory Results: 03/15/20 14:59 03/15/20 08:02 03/15/20 03/15/20 03/15/20 06:47 08:02 08:02 WBC 17.6 H D RBC 3.03 L Hgb 8.9 L Hct 26.8 L MCV 88 MCH 29.4 MCHC 33.3 RDW 15.7 H Plt Count 261 Seg Neutrophils % 80.8 H Carbonic Acid Not Reportable HCO3/H2CO3 Ratio Not Reportable ABG pH Not Reportable ABG pCO2 Not Reportable ABG pO2 27.5 L* ABG HCO3 Not Reportable ABG O2 Saturation Not Reportable ABG Base Excess Not Reportable FiO2 CORD BLOOD Sodium Potassium Chloride Carbon Dioxide Anion Gap BUN Creatinine Est GFR ( Amer) Glucose Calcium Total Bilirubin AST Alkaline Phosphatase Total Protein Albumin Urine Color Urine Appearance Urine pH Ur Specific [place] Urine Protein Urine Glucose (UA) Urine Ketones Urine Blood Urine Nitrite Ur Leukocyte Esterase Blood Type O POSITIVE Antibody Screen NEGATIVE 03/15/20 03/15/20 03/15/20 08:02 14:59 17:00 WBC 19.8 H RBC 3.21 L Hgb 9.2 L Hct 27.3 L MCV 85 MCH 28.7 MCHC 33.7 RDW 15.9 H Plt Count 245 Seg Neutrophils % Carbonic Acid HCO3/H2CO3 Ratio ABG pH ABG pCO2 ABG pO2 ABG HCO3 ABG O2 Saturation ABG Base Excess FiO2 Sodium 134.6 L Potassium 3.8 Chloride 106 Carbon Dioxide 24 Anion Gap 5 BUN 5 L Creatinine 0.65 Est GFR ( Amer) > 60 Glucose 103 Calcium 8.3 L Total Bilirubin 0.4 AST 22 Alkaline Phosphatase 117 Total Protein 5.5 L Albumin 2.7 L Urine Color YELLOW Urine Appearance CLEAR Urine pH 6.0 Ur Specific [place] 1.011 Urine Protein NEGATIVE Urine Glucose (UA) NEGATIVE Urine Ketones NEGATIVE Urine Blood NEGATIVE Urine Nitrite NEGATIVE Ur Leukocyte Esterase NEGATIVE Blood Type Antibody Screen Impressions: POD 0. transfer accepted so she can be close to her infant. Plan Discharge Plan: Plan transfer to [facility] Time Spent: Less than 30 Minutes
[2020-03-15 20:13] VITALS: BP 131/84
--- NOTE | 2020-03-16 11:35 | Delivery Summary ---
Del Sum A-C Datetime Report Generated by CPN: 03/16/2020 11:34 DELIVERY PERSONNEL DELIVERY PERSONNEL: [id number] Delivery Doctor:: Vianney Rico MD Delivery Doctor:: Vianney Rico MD PATIENT SERVICES REP:: Ryley Mon CRNA PATIENT SERVICES REP:: Ryley Mon CRNA Labor and Delivery Nurse:: Laurel Farah RNrailroad car truck builder Nurse:: Lorraine De La O RN Desktop Publisher:: Laurel Farah RN Desktop Publisher:: Carlos Kimbrough RN Neonatal Nurse Practitioner:: NOLAN Goodwin Nursery Nurse:: Allison Jaramillo RN MSN Nursery Nurse:: Veronica Ward RN Stranding Machine Operator Helper/MUSICAL THERAPIST: Yaneli Parks CST Stranding Machine Operator Helper/MUSICAL THERAPIST: [facility] Stranding Machine Operator Helper/MUSICAL THERAPIST: [facility] [place] Stranding Machine Operator Helper/MUSICAL THERAPIST: Yaneli Parks CST Additional Personnel: : Curt Davies PATIENT SERVICES REP MATERNAL INFORMATION Delivery Anesthesia: General Medications After Delivery: Pitocin 10 Units IM; Pitocin 30 Units in 500ml NS/D5W; Cytotec 1000mcg Per Rectum/Vagina Delivery QBL: 1907 Maternal Complications: Abruptio Placenta LABOR SUMMARY EDC: 03/22/2020 00:00 No. Babies in Womb: 1 Attempted: No Labor Anesthesia: IV Sedation LABOR INFORMATION Reason for Induction: Not Applicable Oxytocin: N/A Group B Beta Strep: Positive Antibiotics # of Doses: 1 Antibiotics Time of Last Dose: 0644 Name of Antibiotic Given: Ancef 2G Steroids Given: None Reason Steroids Not Administered: Not Applicable MEMBRANES Membranes Rupture Method: Artificial Rupture of Membranes: 03/15/2020 06:47 Length of Rupture (hr): 0.00 Amniotic Fluid Color: Bloody Amniotic Fluid Amount: Large Amniotic Fluid Odor: None STAGES OF LABOR Stage 3 hr: 0 Stage 3 min: 2 VAGINAL DELIVERY Episiotomy: None Laceration #1: None Laceration Extension #1: N/A Laceration Repair: Not Applicable Sponge Count Correct: N/A Sharps Count Correct: N/A CSECTION DELIVERY Primary Indication: Abruptio Placenta Other Primary Indication: n/a Secondary Indication: N/A Other Secondary Indication: n/a CSection Urgency: Emergency CSection Incidence: Repeat Labor: No Labor Elective: N/A CSection Incision: Lower Uterine Transverse BABY A INFORMATION Delivery Date/Time: 03/15/2020 06:47 Method of Delivery: Nurse Controlled Delivery: No Born in Route : No : N/A Forceps: N/A Vacuum Extraction: N/A Shoulder Dystocia : No PRESENTATION/POSITION BABY A Presentation: Cephalic Cephalic Presentation: Vertex Vertex Position: n/a Breech Presentation: n/a PLACENTA INFORMATION BABY A Placenta Delivery Time : 03/15/2020 06:49 Placenta Method of Delivery: Manual Removal Placenta Status: Delivered SCORES BABY A Heart Rate 1 min: Absent Resp Effort 1 min: Absent Reflex Irritability 1 min: No Response Muscle Tone 1 min: Flaccid Color 1 min: Blue/Pale SCORE 1 MIN: 0 Heart Rate 5 min: Absent Resp Effort 5 min: Absent Reflex Irritability 5 min: No Response Muscle Tone 5 min: Flaccid Color 5 min: Blue/Pale SCORE 5 MIN: 0 INFORMATION BABY A Gestational Age at Delivery: 39.0 Gestational Status: Full Term- 39- 40.6 Weeks Outcome : Liveborn Infant Condition : Critical Infant Sex: Female CORD INFORMATION BABY A No. Cord Vessels: 3 Nuchal Cord : N/A Cord Blood Taken: Yes-For Eval (Mom's Blood Type - or O+) ASSESSMENT BABY A Skin to Skin: No Skin to Skin Time (min): 0 Transferred To: NICU BABY B INFORMATION : N/A
== END 2020-03-15 20:50 | disposition short-term general hospital (02) | DRG 786 ==
LOC: LC 06:14 → LR 06:38 → 2S 10:55
PROVIDERS: ADMIT Student in an Organized Health Care Education/Training Program; ATTEND Student in an Organized Health Care Education/Training Program
PROC: 10D00Z1 Extraction of Products of Conception, Low, Open Approach (ICD-10-PCS; principal; 2020-03-15)
PROC: 30233N1 Transfusion of Nonautologous Red Blood Cells into Peripheral Vein, Percutaneous Approach (ICD-10-PCS; 2020-03-15)
DX: O34.211 Maternal care for low transverse scar from previous cesarean delivery (principal); O45.93 Premature separation of placenta, unspecified, third trimester; D62 Acute posthemorrhagic anemia; O76 Abnormality in fetal heart rate and rhythm complicating labor and delivery; O99.824 Streptococcus B carrier state complicating childbirth; O90.81 Anemia of the puerperium; Z03.818 Encounter for observation for suspected exposure to other biological agents ruled out; Z91.040 Latex allergy status; Z3A.39 39 weeks gestation of pregnancy; Z37.0 Single live birth
CPT/HCPCS: 1961; 36415; 36430; 64450; 76942; 80053; 80307; 81001; 81005; 82803; 85025; 85384; 85610; 85730; 86592; 86850; 86900; 86901; 86920; 87635; 88307; 94760; 94799; 99140; C1758; C9803; J0330; J0690; J1100; J1170; J2210; J2250; J2270; J2405; J2550; J2590; J2704; J2795; J3010; J3490; P9016

== ENCOUNTER → 2020-03-20 | Outpatient (CLI) | payer MEDICAID ==
[2020-03-20 12:21] LABS: ABSOLUTE EOSINOPHILS # (AUTO) 0.1 10^3/uL (0.0-0.6); ABSOLUTE LYMPHOCYTES (AUTO) 0.9 10^3/uL (0.5-4.7); ABSOLUTE MONOCYTES (AUTO) 0.7 10^3/uL (0.1-1.4); ABSOLUTE NEUT (AUTO) 5.7 10^3/uL (1.7-8.2); BASOPHILS % (AUTO) 0.3 % (0-2); HEMOGLOBIN 8.3 g/dL (12.0-15.5); LYMPHOCYTES % (AUTO) 12.7 % (13-45); MEAN CORPUSCULAR HEMOGLOBIN 29.5 pg (27.0-33.4); MEAN CORPUSCULAR HGB CONC 34.6 g/dL (32.0-36.0); MEAN CORPUSCULAR VOLUME 86 fl (80-97); MONOCYTES % (AUTO) 8.8 % (3-13); PLATELET COUNT 342 10^3/uL (150-450); RED BLOOD COUNT 2.81 10^6/uL (3.72-5.28); RED CELL DISTRIBUTION WIDTH 15.9 % (11.5-14.0); SEGMENTED NEUTROPHILS % (AUTO) 77.2 % (42-78); TOTAL CELLS COUNTED % (AUTO) 100 %; WHITE BLOOD COUNT 7.4 10^3/uL (4.0-10.5)
[2020-03-20 12:50] LABS: IRON(TIBC) 43.9 ug/dL (37-170)
[2020-03-20 14:02] LABS: FOLATE > 20.00 ng/mL (>2.76)
== END ==
LOC: OD 11:46
PROVIDERS: ATTEND Student in an Organized Health Care Education/Training Program
DX: D50.9 Iron deficiency anemia, unspecified (principal)
CPT/HCPCS: 36415; 82607; 82728; 82746; 83540; 83550; 85025

== ENCOUNTER 2020-03-22 08:11 | Outpatient (CLI) | payer MEDICAID ==
[~2020-03-22 08:11] MED LIST: FERRIC CARBOXYMALTOSE 750 MG in NORMAL SALINE 250 ML IV PRN; NORMAL SALINE 250 ML IV PRN
[2020-03-22 08:35] VITALS: BP 136/76
== END 2020-03-22 09:40 | disposition home or self-care (01) ==
LOC: II 08:11 → 5TH 08:15 → II 09:40
PROVIDERS: ATTEND Student in an Organized Health Care Education/Training Program
DX: O99.019 Anemia complicating pregnancy, unspecified trimester (principal)
CPT/HCPCS: 96365; J7050; J1439

== ENCOUNTER 2020-04-05 08:06 | Outpatient (CLI) | payer MEDICAID ==
[2020-04-05 08:19] VITALS: BP 134/81
== END 2020-04-05 08:57 | disposition home or self-care (01) ==
LOC: II 08:06 → 5TH 08:09 → II 08:57
PROVIDERS: ATTEND Student in an Organized Health Care Education/Training Program
DX: O99.019 Anemia complicating pregnancy, unspecified trimester (principal)
CPT/HCPCS: 96365; J7050; J1439